=== PATIENT | female | born 1970 | race Two or more races ===

== ENCOUNTER 2019-06-27 09:25 | Inpatient (IN) | payer BC ==
[~2019-06-27] VITALS: Ht 165.1 cm; Wt 72.6 kg
[2019-06-27] MEDS ORDERED: ACETAMINOPHEN 500 MG TABLET PO ONE (10:30)
[2019-06-27] MEDS ORDERED: PIPERACILLIN/TAZOBACTAM 4.5 GM in IV NORMAL SALINE 100ML 100 ML IV ONE (10:30)
[2019-06-27] MEDS ORDERED: MORPHINE SULFATE 4 MG/ML VIAL. IV/SQ PRN (10:30)
[2019-06-27 10:40] LABS: BILIRUBIN,URINE SMALL (NEG); CLARITY,URINE CLEAR; COLOR,URINE AMBER; NITRITE,URINE NEGATIVE (NEG); PROTEIN,URINE 100 mg/dL (NEG-TRACE)
[2019-06-27] MEDS: NORMAL SALINE IV SCH ×2 (10:50→11:22)
[2019-06-27 10:52] LABS: BASO % 0 % (0-3); EOS % 0 % (0-3); HEMATOCRIT 37.2 % (36.0-47.0); HEMOGLOBIN 12.3 g/dL (12.0-15.5); LYMPH # 1.3 x10^3/uL (1.0-4.8); LYMPH % 6 % (24-48); MEAN CORPUSCULAR HEMOGLOBIN 28 pg (25-35); MEAN CORPUSCULAR HGB CONC 33 g/dL (31-37); MEAN CORPUSCULAR VOLUME 83 fL (79-100); MONO # 1.2 x10^3/uL (0.0-1.1); MONO % 6 % (0-9); NEUT % 88 % (31-73); PLATELET COUNT 249 x10^3/uL (140-400); RED BLOOD COUNT 4.48 x10^6/uL (3.50-5.40); WHITE BLOOD COUNT 21.6 x10^3/uL (4.0-11.0)
[2019-06-27 10:58] LABS: BACTERIA,URINE 0 /HPF (0-FEW); RBC,URINE >40 /HPF (0-2); SQUAMOUS EPITHELIAL CELL,UR MOD /LPF; WBC,URINE >40 /HPF (0-4)
[2019-06-27 11:08] LABS: CALCIUM 8.8 mg/dL (8.5-10.1); GFR 58.5; POTASSIUM 3.8 mmol/L (3.5-5.1)
[2019-06-27 11:13] LABS: ALBUMIN 3.5 g/dL (3.4-5.0); ALBUMIN/GLOBULIN RATIO 0.8 (1.0-1.7); TOTAL BILIRUBIN 0.9 mg/dL (0.2-1.0)
[2019-06-27] MEDS ORDERED: IOHEXOL 300 MG/ML 100ML VIAL. IV ONE (11:30)
[2019-06-27] MEDS ORDERED: CONTRAST GIVEN. MC PRN (11:30)
--- NOTE | 2019-06-27 12:14 | RAD ---
PQRS Compliance Statement: One or more of the following individualized dose reduction techniques were utilized for this examination: 1. Automated exposure control 2. Adjustment of the mA and/or kV according to patient size 3. Use of iterative reconstruction technique CT ABD PELV W/ IV CONTRST ONLY Clinical Indication: Right lower quadrant pain, flank pain. Comparison: None. Technique: Helical CT imaging of the abdomen and pelvis is performed after 60 cc of Omnipaque 300 IV contrast. Oral contrast not given. Findings: There is moderate atelectasis in the bilateral basilar lower lobes. Tiny calcified hilar lymph nodes. Cardiac size normal. Cholecystectomy. The liver, spleen, pancreas, abdominal aorta, and adrenal glands are normal. The right kidney is normal. The left kidney is edematous. There is perinephric stranding. Small cyst lower pole of left kidney. There is urothelial hyperenhancement of the renal pelvis and ureter. There is no hydronephrosis. There is no ureteral calculus. Stomach unremarkable. Small fat-containing umbilical hernia. There is no dilated small bowel. Appendix caliber is upper limits of normal, there is no periappendiceal inflammation. There is no dilated small bowel. There is no colon wall thickening. No significant urinary bladder wall thickening. No bladder calculus. Uterus unremarkable. No pelvic free fluid. No acute bone abnormality. IMPRESSION: 1. There is urothelial hyperenhancement of the left renal pelvis and ureter most suggestive of nonspecific pyelitis. 2. The left kidney is edematous and slightly hypoenhancing with perinephric stranding. There are no findings definitive for pyelonephritis but early pyelonephritis is suspected. 3. No obstructive uropathy. 4. Moderate atelectasis in the bilateral lower lobes. Electronically signed by: Mario Levine MD (06/27/2019 12:12 PM) [id number]
[2019-06-27 13:17] LABS: % BANDS 1 % (0-9); % LYMPHS 6 % (24-48); % MONOS 4 % (0-10); % SEGS 89 % (35-66)
[2019-06-27 13:18] LABS: PLT ESTIMATE ADEQUATE (ADEQUATE)
--- NOTE | 2019-06-27 13:57 | PDOC1 ---
History and Physical Date of Admission Date of Admission DATE: 06/27/19 TIME: 13:56 Identification/Chief Complaint Chief Complaint Left flank pain Source Source: Patient History of Present Illness History of Present Illness Ms Bellamy is a 49yo [place] islander-speaking F w/ PMHx migraine, ?lupus who presents to ED c/o right flank pain radiating to the right lower quadrant as well as migraine headache that began 4 days ago. Patient denies any nausea, vomiting, photosensitivity, denies this being the worst headache in her life. Denies any exacerbating or relieving factors to her symptoms. Patient states she was seen yesterday at the PCPs office and was started on Bactrim for UTI. She states she has taken 2 doses with no improvement. CT shows left renal enhancement consistent with possible early pyelonephritis. She c/o RLQ pain, has no left flank pain on examination, only has OWUSU on further ROS. Had WBC 21.6, procalcitonin 6.61, Alkaline phosphatase 145, ALT 68 and had fever 101.6F and HR 122 bpm. Denies recent sick contacts, no change in bowel habits or recent travel. Given empiric zosyn and IVF per sepsis protocol in ED. She has not had a menstrual period in over a year. Urine test was negative. 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 [place] Past Medical History Cardiovascular: No pertinent hx Pulmonary: No pertinent hx CENTRAL NERVOUS SYSTEM: Migraine GI: No pertinent hx Heme/Onc: No pertinent hx Hepatobiliary: No pertinent hx Psych: No pertinent hx Infectious disease: No pertinent hx ENT: No pertinent hx Renal/: No pertinent hx Endocrine: No pertinent hx Dermatology: No pertinent hx Past Surgical History Past Surgical History: Cholecystectomy Family History Family History: Diabetes, High Cholestrol Social History Smoke: No ALCOHOL: none Drugs: None Current Medications Current Medications Current Medications Sodium Chloride 8,070 ml @ 8,070 mls/hr Q1H IV Last administered on 06/27/19at 11:22; Start 06/27/19 at 10:18 Piperacillin Sod/ Tazobactam Sod 4.5 gm/Sodium Chloride 100 ml @ 200 mls/hr 1X ONCE IV Last administered on 06/27/19at 11:21; Start 06/27/19 at 10:30; Stop 06/27/19 at 10:59; Status DC Morphine Sulfate (Morphine Sulfate) 4 mg PRN Q15MIN PRN IV/SQ PAIN GREATER THAN 3/10 Last administered on 06/27/19at 11:21; Start 06/27/19 at 10:30; Stop 06/28/19 at 10:29 Acetaminophen (Tylenol) 1,000 mg 1X ONCE PO Last administered on 06/27/19at 11:21; Start 06/27/19 at 10:30; Stop 06/27/19 at 10:50; Status DC Iohexol (Omnipaque 300 Mg/ml) 75 ml 1X ONCE IV Last administered on 06/27/19at 11:35; Start 06/27/19 at 11:30; Stop 06/27/19 at 11:31; Status DC Info (CONTRAST GIVEN -- Rx MONITORING) 1 each PRN DAILY PRN MC SEE COMMENTS; Start 06/27/19 at 11:30; Stop 06/29/19 at 11:29 Allergies Allergies: Coded Allergies: No Known Drug Allergies (Unverified , 06/27/19) ROS General: YES: Chills, Night Sweats, Fatigue, Malaise, Appetite; No: Other PSYCHOLOGICAL ROS: No: Anxiety, Behavioral Disorder, Concentration difficultie, Decreased libido, Depression, Disorientation, Hallucinations, Hostility, Irritablity, Memory difficulties, Mood Swings, Obsessive thoughts, Physical abuse, Sexual abuse, Sleep disturbances, Suicidal ideation, Other Eyes: Yes Blurry vision, Yes Excessive tearing, Yes Photophobia; No Decreased vision, No Double vision, No Dry eyes, No Eye Pain, No Itchy Eyes, No Loss of vision, No Scotomata, No Uses contacts, No Uses glasses, No Other HEENT: YES: Heacaches; No: Visual Changes, Hearing change, Nasal congestion, Nasal discharge, Oral lesions, Sinus pain, Sore Throat, Epistaxis, Sneezing, Snoring, Tinnitus, Vertigo, Vocal changes, Other ALLERGY AND IMMUNOLOGY: No: Hives, Insect Bite Sensitivity, Itchy/Watery Eyes, Nasal Congestion, Post Nasal Drip, Seasonal Allergies, Other Hematological and Lymphatic: No: Bleeding Problems, Blood Clots, Blood Transfusions, Brusing, Night Sweats, Pallor, Swollen Lymph Nodes, Other ENDOCRINE: No: Breast Changes, Galactorrhea, Hair Pattern Changes, Hot Flashes, Malaise/lethargy, Mood Swings, Palpitations, Polydipsia/polyuria, Skin Changes, Temperature Intolerance, Unexpected Weight Changes, Other Breast: No New/Changing Breast Lumps, No Nipple changes, No Nipple discharge, No Other Respiratory: No: Cough, Hemoptysis, Orthopnea, Pleuritic Pain, Shortness of breath, SOB with excertion, Sputum Changes, Stridor, Tachypnea, Wheezing, Other Cardiovascular: No Chest Pain, No Palpitations, No Orthopnea, No Paroxysmal Noc. Dyspnea, No Edema, No Lt Headedness, No Other Gastrointestinal: Yes Nausea, Yes Abdominal Pain; No Vomiting, No Diarrhea, No Constipation, No Melena, No Hematochezia, No Other Genitourinary: YES Dysuria, YES Frequency, YES Hematuria, YES Urgency, YES Pain , YES Flank Pain; No Incontinence, No Retention, No Discharge, No Other, No , No , No , No , No , No , No Musculoskeletal: No Gait Disturbance, No Joint Pain, No Joint Stiffness, No Joint Swelling, No Muscle Pain, No Muscular Weakness, No Pain In:, No Swelling In:, No Other Neurological: No Behavorial Changes, No Bowel/Bladder ControlChng, No Con fusion, No Dizziness, No Gait Disturbance, No Headaches, No Impaired Coord/balance, No Memory Loss, No Numbness/Tingling, No Seizures, No Speech Problems, No Tremors, No Visual Changes, No Weakness, No Other Skin: No Dry Skin, No Eczema, No Hair Changes, No Lumps, No Mole Changes, No Mottling, No Nail Changes, No Pruritus, No Rash, No Skin Lesion Changes, No O ther, No Acne Physical Exam General: Alert, Oriented X3, Cooperative, No acute distress HEENT: Atraumatic, PERRLA, EOMI, Mucous membr. moist/pink Lungs: Clear to auscultation, Normal air movement Heart: S1S2, RRR, no gallops, no murmurs Abdomen: Normal bowel sounds, No hepatosplenomegaly, No masses, Other (RLQ tender) Rectal Exam: not examined Extremities: No clubbing, No cyanosis, No edema, Normal pulses, No tenderness/swelling Skin: No rashes, No breakdown, No significant lesion Neuro: Normal gait, Normal speech, Strength at 5/5 X4 ext, Normal tone, Sensation intact, Cranial nerves 3-12 NL, Reflexes 2+ Psych/Mental Status: Mental status NL, Mood NL Vitals Vitals Vital Signs Date Time Temp Pulse Resp B/P (MAP) Pulse Ox O2 Delivery O2 Flow Rate FiO2 06/27/19 11:21 30 100 Room Air 06/27/19 10:48 98.3 116 133/60 (84) 98.3 Labs Labs Laboratory Tests Test 06/27/19 09:48 06/27/19 10:18 06/27/19 10:35 Urine Collection Type Unknown Urine Color Sadaf Urine Clarity Clear Urine pH 8.0 Urine Specific [employer] 1.015 Urine Protein 100 mg/dL (NEG-TRACE) Urine Glucose (UA) Negative mg/dL (NEG) Urine Ketones (Stick) 15 mg/dL (NEG) Urine Blood Large (NEG) Urine Nitrite Negative (NEG) Urine Bilirubin Small (NEG) Urine Urobilinogen Dipstick 1.0 mg/dL (0.2 mg/dL) Urine Leukocyte Esterase Moderate (NEG) Urine RBC >40 /HPF (0-2) Urine WBC >40 /HPF (0-4) Urine Squamous Epithelial Cells Mod /LPF Urine Bacteria 0 /HPF (0-FEW) Bedside Urine HCG, Qualitative Hcg negative (Negative) White Blood Count 21.6 x10^3/uL (4.0-11.0) Red Blood Count 4.48 x10^6/uL (3.50-5.40) Hemoglobin 12.3 g/dL (12.0-15.5) Hematocrit 37.2 % (36.0-47.0) Mean Corpuscular Volume 83 fL (79-100) Mean Corpuscular Hemoglobin 28 pg (25-35) Mean Corpuscular Hemoglobin Concent 33 g/dL (31-37) Red Cell Distribution Width 14.0 % (11.5-14.5) Platelet Count 249 x10^3/uL (140-400) Neutrophils (%) (Auto) 88 % (31-73) Lymphocytes (%) (Auto) 6 % (24-48) Monocytes (%) (Auto) 6 % (0-9) Eosinophils (%) (Auto) 0 % (0-3) Basophils (%) (Auto) 0 % (0-3) Neutrophils # (Auto) 19.0 x10^3/uL (1.8-7.7) Lymphocytes # (Auto) 1.3 x10^3/uL (1.0-4.8) Monocytes # (Auto) 1.2 x10^3/uL (0.0-1.1) Eosinophils # (Auto) 0.0 x10^3/uL (0.0-0.7) Basophils # (Auto) 0.0 x10^3/uL (0.0-0.2) Segmented Neutrophils % 89 % (35-66) Band Neutrophils % 1 % (0-9) Lymphocytes % 6 % (24-48) Monocytes % 4 % (0-10) Platelet Estimate Adequate (ADEQUATE) Sodium Level 141 mmol/L (136-145) Potassium Level 3.8 mmol/L (3.5-5.1) Chloride Level 103 mmol/L (98-107) Carbon Dioxide Level 27 mmol/L (21-32) Anion Gap 11 (6-14) Blood Urea Nitrogen 9 mg/dL (7-20) Creatinine 1.0 mg/dL (0.6-1.0) Estimated GFR (Cockcroft-Gault) 58.5 BUN/Creatinine Ratio 9 (6-20) Glucose Level 123 mg/dL (70-99) Lactic Acid Level 1.5 mmol/L (0.4-2.0) Calcium Level 8.8 mg/dL (8.5-10.1) Total Bilirubin 0.9 mg/dL (0.2-1.0) Aspartate Amino Transf (AST/SGOT) 32 U/L (15-37) Alanine Aminotransferase (ALT/SGPT) 68 U/L (14-59) Alkaline Phosphatase 145 U/L (46-116) Total Protein 8.0 g/dL (6.4-8.2) Albumin 3.5 g/dL (3.4-5.0) Albumin/Globulin Ratio 0.8 (1.0-1.7) Lipase 61 U/L (73-393) Procalcitonin 6.61 ng/mL (0.00-0.10) Laboratory Tests Test 06/27/19 09:48 06/27/19 10:18 06/27/19 10:35 Urine Collection Type Unknown Urine Color Sadaf Urine Clarity Clear Urine pH 8.0 Urine Specific [employer] 1.015 Urine Protein 100 mg/dL (NEG-TRACE) Urine Glucose (UA) Negative mg/dL (NEG) Urine Ketones (Stick) 15 mg/dL (NEG) Urine Blood Large (NEG) Urine Nitrite Negative (NEG) Urine Bilirubin Small (NEG) Urine Urobilinogen Dipstick 1.0 mg/dL (0.2 mg/dL) Urine Leukocyte Esterase Moderate (NEG) Urine RBC >40 /HPF (0-2) Urine WBC >40 /HPF (0-4) Urine Squamous Epithelial Cells Mod /LPF Urine Bacteria 0 /HPF (0-FEW) Bedside Urine HCG, Qualitative Hcg negative (Negative) White Blood Count 21.6 x10^3/uL (4.0-11.0) Red Blood Count 4.48 x10^6/uL (3.50-5.40) Hemoglobin 12.3 g/dL (12.0-15.5) Hematocrit 37.2 % (36.0-47.0) Mean Corpuscular Volume 83 fL (79-100) Mean Corpuscular Hemoglobin 28 pg (25-35) Mean Corpuscular Hemoglobin Concent 33 g/dL (31-37) Red Cell Distribution Width 14.0 % (11.5-14.5) Platelet Count 249 x10^3/uL (140-400) Neutrophils (%) (Auto) 88 % (31-73) Lymphocytes (%) (Auto) 6 % (24-48) Monocytes (%) (Auto) 6 % (0-9) Eosinophils (%) (Auto) 0 % (0-3) Basophils (%) (Auto) 0 % (0-3) Neutrophils # (Auto) 19.0 x10^3/uL (1.8-7.7) Lymphocytes # (Auto) 1.3 x10^3/uL (1.0-4.8) Monocytes # (Auto) 1.2 x10^3/uL (0.0-1.1) Eosinophils # (Auto) 0.0 x10^3/uL (0.0-0.7) Basophils # (Auto) 0.0 x10^3/uL (0.0-0.2) Segmented Neutrophils % 89 % (35-66) Band Neutrophils % 1 % (0-9) Lymphocytes % 6 % (24-48) Monocytes % 4 % (0-10) Platelet Estimate Adequate (ADEQUATE) Sodium Level 141 mmol/L (136-145) Potassium Level 3.8 mmol/L (3.5-5.1) Chloride Level 103 mmol/L (98-107) Carbon Dioxide Level 27 mmol/L (21-32) Anion Gap 11 (6-14) Blood Urea Nitrogen 9 mg/dL (7-20) Creatinine 1.0 mg/dL (0.6-1.0) Estimated GFR (Cockcroft-Gault) 58.5 BUN/Creatinine Ratio 9 (6-20) Glucose Level 123 mg/dL (70-99) Lactic Acid Level 1.5 mmol/L (0.4-2.0) Calcium Level 8.8 mg/dL (8.5-10.1) Total Bilirubin 0.9 mg/dL (0.2-1.0) Aspartate Amino Transf (AST/SGOT) 32 U/L (15-37) Alanine Aminotransferase (ALT/SGPT) 68 U/L (14-59) Alkaline Phosphatase 145 U/L (46-116) Total Protein 8.0 g/dL (6.4-8.2) Albumin 3.5 g/dL (3.4-5.0) Albumin/Globulin Ratio 0.8 (1.0-1.7) Lipase 61 U/L (73-393) Procalcitonin 6.61 ng/mL (0.00-0.10) Images Images CT abdomen/pelvis - 1. There is urothelial hyperenhancement of the left renal pelvis and ureter most suggestive of nonspecific pyelitis. 2. The left kidney is edematous and slightly hypoenhancing with perinephric stranding. There are no findings definitive for pyelonephritis but early pyelonephritis is suspected. 3. No obstructive uropathy. 4. Moderate atelectasis in the bilateral lower lobes. VTE Prophylaxis Ordered VTE Prophylaxis Devices: Yes VTE Pharmacological Prophylaxi: No Assessment/Plan Assessment/Plan A/P: Acute abdominal pain - with her dysuria this does seem like pyelonephritis. Interestingly her pain is not on her left side or flank, but in RLQ. Her appendix is large, but doesn't appear inflamed on CT. Intractable headache - history of migraine, will give toradol prn. She is not on any prophylaxis ?lupus - she is uncertain or we are mistranslating. Given her hematuria and hea dache and incongruous CT and abdominal findings I will order RADHA and dsDNA now. Severe sepsis - blood cultures x2, urine culture. Empiric antibiotics for seems to be urosepsis, IVF. tylenol and toradol for fevers Transaminitis - likely 2/2 hypotension, will monitor FEN -General diet. NSS 175cc/hr PPX - SCDs FULL CODE Dispo -inpatient for sepsis related to pyelonephritis MARTINA RAUSCH MD Jun 27, 2019 13:57
[2019-06-27] MEDS ORDERED: CIPROFLOXACIN 200MG PREMIX 100 ML IV ONE (14:00)
--- NOTE | 2019-06-27 16:05 | PHYS DOC ---
Past Medical History Past Medical History: Migraines, Other Additional Past Medical Histor: POSSIBLE LUPUS Past Surgical History: Cholecystectomy Alcohol Use: Rarely Drug Use: None Adult General Chief Complaint Chief Complaint: HEADACHE HPI HPI Patient is a 49 year old [place]-speaking female with history of migraine headaches who presents to the ED today complaining of a chilling 8 out of 10 r ight flank pain radiating to the right lower quadrant as well as migraine headache that began 4 days ago. Patient denies any nausea, vomiting, photosensitivity, denies this being the worst headache in her life. Denies any exacerbating or relieving factors to her symptoms. Patient states she was seen yesterday at the PCPs office and was started on Bactrim for UTI. She states she has taken 2 doses with no improvement. 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 Denies dysuria or hematuria [] Musculoskeletal: Denies back pain or joint pain [] Integument: Denies rash or skin lesions [] Neurologic: Reports headache, denies focal weakness or sensory changes [] All other systems were reviewed and found to be within normal limits, except as documented in this note. Current Medications Current Medications Current Medications Medications (Trade) Dose Ordered Sig/[facility] Start Time Stop Time Status Last Admin Dose Admin Acetaminophen (Tylenol) 1,000 mg 1X ONCE 06/27/19 10:30 06/27/19 10:50 DC 06/27/19 11:21 1,000 MG Ciprofloxacin/ Dextrose 100 ml @ 100 mls/hr 1X ONCE 06/27/19 14:00 06/27/19 14:59 DC 06/27/19 14:18 100 MLS/HR Info (CONTRAST GIVEN -- Rx MONITORING) 1 each PRN DAILY PRN 06/27/19 11:30 06/29/19 11:29 Iohexol (Omnipaque 300 Mg/ml) 75 ml 1X ONCE 06/27/19 11:30 06/27/19 11:31 DC 06/27/19 11:35 75 ML Morphine Sulfate (Morphine Sulfate) 4 mg PRN Q15MIN PRN 06/27/19 10:30 06/28/19 10:29 06/27/19 11:21 4 MG Piperacillin Sod/ Tazobactam Sod 4.5 gm/Sodium Chloride 100 ml @ 200 mls/hr 1X ONCE 06/27/19 10:30 06/27/19 10:59 DC 06/27/19 11:21 200 MLS/HR Sodium Chloride 8,070 ml @ 8,070 mls/hr Q1H 06/27/19 10:18 06/27/19 11:22 8,070 MLS/HR Allergies Allergies Allergies Coded Allergies Type Severity Reaction Last Updated Verified No Known Drug Allergies 06/27/19 No Physical Exam Physical Exam Constitutional: Well developed, well nourished, no acute distress, non-toxic appearance. [] HENT: Normocephalic, atraumatic, bilateral external ears normal, oropharynx moist, no oral exudates, nose normal. [] Eyes: PERRLA, EOMI, conjunctiva normal, no discharge. [] Neck: Normal range of motion, no tenderness, supple, no stridor. [] Cardiovascular:Heart rate regular rhythm, no murmur [] Lungs & Thorax: Bilateral breath sounds clear to auscultation [] Abdomen: Bowel sounds normal, soft, no tenderness, no masses, no pulsatile masses. [] Skin: Warm, dry, no erythema, no rash. [] Back: No tenderness, moderate bilateral CVA tenderness. [] Extremities: No tenderness, no cyanosis, no clubbing, ROM intact, no edema. [] Neurologic: Alert and oriented X 3, normal motor function, normal sensory function, no focal deficits noted. Cranial nerves II through XII intact Psychologic: Affect normal, judgement normal, mood normal. [] Current Patient Data Vital Signs Vital Signs Date Time Temp Pulse Resp B/P (MAP) Pulse Ox O2 Delivery O2 Flow Rate FiO2 06/27/19 13:54 102 24 85/51 (62) 97 Room Air 06/27/19 11:36 101.6 101.6 Lab Values Laboratory Tests Test 06/27/19 09:48 06/27/19 10:18 06/27/19 10:35 06/27/19 14:00 Urine Collection Type Unknown Urine Color Sadaf Urine Clarity Clear Urine pH 8.0 Urine Specific [place] 1.015 Urine Protein 100 mg/dL (NEG-TRACE) Urine Glucose (UA) Negative mg/dL (NEG) Urine Ketones (Stick) 15 mg/dL (NEG) Urine Blood Large (NEG) Urine Nitrite Negative (NEG) Urine Bilirubin Small (NEG) Urine Urobilinogen Dipstick 1.0 mg/dL (0.2 mg/dL) Urine Leukocyte Esterase Moderate (NEG) Urine RBC >40 /HPF (0-2) Urine WBC >40 /HPF (0-4) Urine Squamous Epithelial Cells Mod /LPF Urine Bacteria 0 /HPF (0-FEW) POC Urine HCG, Qualitative Hcg negative (Negative) White Blood Count 21.6 x10^3/uL (4.0-11.0) H Red Blood Count 4.48 x10^6/uL (3.50-5.40) Hemoglobin 12.3 g/dL (12.0-15.5) Hematocrit 37.2 % (36.0-47.0) Mean Corpuscular Volume 83 fL (79-100) Mean Corpuscular Hemoglobin 28 pg (25-35) Mean Corpuscular Hemoglobin Concent 33 g/dL (31-37) Red Cell Distribution Width 14.0 % (11.5-14.5) Platelet Count 249 x10^3/uL (140-400) Neutrophils (%) (Auto) 88 % (31-73) H Lymphocytes (%) (Auto) 6 % (24-48) L Monocytes (%) (Auto) 6 % (0-9) Eosinophils (%) (Auto) 0 % (0-3) Basophils (%) (Auto) 0 % (0-3) Neutrophils # (Auto) 19.0 x10^3/uL (1.8-7.7) H Lymphocytes # (Auto) 1.3 x10^3/uL (1.0-4.8) Monocytes # (Auto) 1.2 x10^3/uL (0.0-1.1) H Eosinophils # (Auto) 0.0 x10^3/uL (0.0-0.7) Basophils # (Auto) 0.0 x10^3/uL (0.0-0.2) Segmented Neutrophils % 89 % (35-66) H Band Neutrophils % 1 % (0-9) Lymphocytes % 6 % (24-48) L Monocytes % 4 % (0-10) Platelet Estimate Adequate (ADEQUATE) Sodium Level 141 mmol/L (136-145) Potassium Level 3.8 mmol/L (3.5-5.1) Chloride Level 103 mmol/L (98-107) Carbon Dioxide Level 27 mmol/L (21-32) Anion Gap 11 (6-14) Blood Urea Nitrogen 9 mg/dL (7-20) Creatinine 1.0 mg/dL (0.6-1.0) Estimated GFR (Cockcroft-Gault) 58.5 BUN/Creatinine Ratio 9 (6-20) Glucose Level 123 mg/dL (70-99) H Lactic Acid Level 1.5 mmol/L (0.4-2.0) 0.6 mmol/L (0.4-2.0) Calcium Level 8.8 mg/dL (8.5-10.1) Total Bilirubin 0.9 mg/dL (0.2-1.0) Aspartate Amino Transferase (AST) 32 U/L (15-37) Alanine Aminotransferase (ALT) 68 U/L (14-59) H Alkaline Phosphatase 145 U/L (46-116) H Total Protein 8.0 g/dL (6.4-8.2) Albumin 3.5 g/dL (3.4-5.0) Albumin/Globulin Ratio 0.8 (1.0-1.7) L Lipase 61 U/L (73-393) L Procalcitonin 6.61 ng/mL (0.00-0.10) H Laboratory Tests 06/27/19 10:35 Laboratory Tests 06/27/19 10:35 EKG EKG [] Radiology/Procedures Radiology/Procedures []PROCEDURE: CT ABD PELV W/ IV CONTRST ONLY PQRS Compliance Statement: One or more of the following individualized dose reduction techniques were utilized for this examination: 1. Automated exposure control 2. Adjustment of the mA and/or kV according to patient size 3. Use of iterative reconstruction technique CT ABD PELV W/ IV CONTRST ONLY Clinical Indication: Right lower quadrant pain, flank pain. Comparison: None. Technique: Helical CT imaging of the abdomen and pelvis is performed after 60 cc of Omnipaque 300 IV contrast. Oral contrast not given. Findings: There is moderate atelectasis in the bilateral basilar lower lobes. Tiny calcified hilar lymph nodes. Cardiac size normal. Cholecystectomy. The liver, spleen, pancreas, abdominal aorta, and adrenal glands are normal. The right kidney is normal. The left kidney is edematous. There is perinephric stranding. Small cyst lower pole of left kidney. There is urothelial hyperenhancement of the renal pelvis and ureter. There is no hydronephrosis. There is no ureteral calculus. Stomach unremarkable. Small fat-containing umbilical hernia. There is no dilated small bowel. Appendix caliber is upper limits of normal, there is no periappendiceal inflammation. There is no dilated small bowel. There is no colon wall thickening. No significant urinary bladder wall thickening. No bladder calculus. Uterus unremarkable. No pelvic free fluid. No acute bone abnormality. IMPRESSION: 1. There is urothelial hyperenhancement of the left renal pelvis and ureter most suggestive of nonspecific pyelitis. 2. The left kidney is edematous and slightly hypoenhancing with perinephric stranding. There are no findings definitive for pyelonephritis but early pyelonephritis is suspected. 3. No obstructive uropathy. 4. Moderate atelectasis in the bilateral lower lobes. Electronically signed by: Mario Newman MD (06/27/2019 12:12 PM) [id number] DICTATED and SIGNED BY: MARIO NEWMAN MD DATE: 06/27/19 1212 Course & Med Decision Making Course & Med Decision Making Pertinent Labs and Imaging studies reviewed. (See chart for details) This is a 49-year-old female patient presenting to the ED today complaining of a headache and right flank pain for 4 days. Temperature not to the ED 11.6, heart rate in the 120s, blood pressures in the 90s over 60s. Patient was started on the sepsis protocol. Was given Zosyn on arrival to the ED. Given levaquin Urine analysis is noted for UTI CBC with a WBC of 21.6 with a left shift lactic 1.[address] of the abdomen and pelvic was noted for pyelonephritis Consulted with Dr. Charles who accepted patient for admission. We will continue with fluid resuscitation. Dragon Disclaimer Dragon Disclaimer This electronic medical record was generated, in whole or in part, using a voice recognition dictation system. Date and Time of Reassessment Date: Jun 27, 2019 Time: 15:30 Fluid Challenge Is the fluid challenge complet: No IBW Target Volume Used: Yes BMI > 30: No Vital Signs Vital Signs: Vital Signs Date Time Temp Pulse Resp B/P (MAP) Pulse Ox O2 Delivery O2 Flow Rate FiO2 06/27/19 13:54 102 24 85/51 (62) 97 Room Air 06/27/19 11:36 101.6 101.6 Temperature Source: Oral Respirations Respiratory Effort: Normal Respiratory Pattern: Normal Cardiovascular Pulse Rhythm: Regular Heart: Nml rate, reg. rhythm Lung Sounds Breath Sounds: Clear Capillary Refil Capillary Refill: Rt Hand > 3 seconds Peripheral Pulse Pulse Location: Monitor Pulse Strength: Normal (2+) Pulse Assessment Method: Monitor Integumentary Skin: Warm Skin Moisture: Dry Skin Color: warm Fingernail Color: WNL Departure Departure Impression: Primary Impression: Pyelonephritis Additional Impressions: Fever Severe sepsis Headache Leukocytosis Disposition: 09 ADMITTED INPATIENT Condition: STABLE Referrals: NO PCP (PCP) Problem Qualifiers Additional Impressions: Fever Fever type: unspecified Qualified Codes: R50.9 - Fever, unspecified Headache Headache type: unspecified Headache chronicity pattern: unspecified pattern Intractability: not intractable Qualified Codes: R51 - Headache Leukocytosis Leukocytosis type: unspecified Qualified Codes: D72.829 - Elevated white blood cell count, unspecified MUTUNGA,DANILO DESIGNER Jun 27, 2019 16:05
[2019-06-27] MEDS ORDERED: ONDANSETRON PF 4 MG/2 ML VIAL. IV PRN (16:15)
[2019-06-27] MEDS ORDERED: IV NORMAL SALINE 1000ML BAG 1,000 ML IV ONE (16:15)
[2019-06-27] MEDS: KETOROLAC 30 MG/ML VIAL. IV PRN (16:56)
[2019-06-27 19:00] VITALS: BP 123/71
[2019-06-27] MEDS: MORPHINE SULFATE 2 MG/ML VIAL. IV PRN (20:24)
--- NOTE | 2019-06-27 20:25 | NUR ---
The patient, SOLITARIO HANSEN, 49 y/o, F admitted by MARTINA RAUSCH MD, was given written information regarding hospital policies, unit procedures and contact persons. patient arrived via ED bed, assisted by ED staff member. Valuables were checked and noted. Aircraft Dispatcher phone used for admission questions and information. Patient denies needs at this time. Patient was given water and new gown at this time. This RN will continue to monitor the patient.
[2019-06-27] MEDS ORDERED: ENOXAPARIN 40 MG/0.4 ML SYRINGE. SQ ONE (21:30)
[2019-06-27] MEDS: POLYETHYLENE GLYCOL 3350 17 GM PACKET. PO SCH (22:45)
[2019-06-27] MEDS: PSYLLIUM HUSK (SUGAR FREE) 1 PKT PACKET PO SCH (22:45)
[2019-06-27] MEDS: PIPERACILLIN/TAZOBACTAM 3.375 GM in IV NORMAL SALINE 50ML 50 ML IV SCH (22:46)
[2019-06-27] MEDS: IV NORMAL SALINE 1000ML BAG 1,000 ML IV SCH (22:51)
[2019-06-27] MEDS: ACETAMINOPHEN 325 MG TABLET. PO PRN (22:53)
[2019-06-27 23:00] VITALS: BP 121/69
[2019-06-28] VITALS (7 sets, daily range): BP systolic 103–127; BP diastolic 65–78
[2019-06-28] MEDS: PIPERACILLIN/TAZOBACTAM 3.375 GM in IV NORMAL SALINE 50ML 50 ML IV SCH ×5 (01:56→23:40)
[2019-06-28] MEDS: KETOROLAC 30 MG/ML VIAL. IV PRN ×3 (01:57→17:03)
[2019-06-28 05:34] LABS: BASO % 0 % (0-3); EOS % 0 % (0-3); HEMATOCRIT 31.8 % (36.0-47.0); HEMOGLOBIN 10.5 g/dL (12.0-15.5); LYMPH # 1.1 x10^3/uL (1.0-4.8); LYMPH % 9 % (24-48); MEAN CORPUSCULAR HEMOGLOBIN 27 pg (25-35); MEAN CORPUSCULAR HGB CONC 33 g/dL (31-37); MEAN CORPUSCULAR VOLUME 83 fL (79-100); MONO # 0.7 x10^3/uL (0.0-1.1); MONO % 6 % (0-9); NEUT # 10.5 x10^3/uL (1.8-7.7); NEUT % 85 % (31-73); PLATELET COUNT 212 x10^3/uL (140-400); RED BLOOD COUNT 3.82 x10^6/uL (3.50-5.40); RED CELL DISTRIBUTION WIDTH 14.3 % (11.5-14.5); WHITE BLOOD COUNT 12.4 x10^3/uL (4.0-11.0)
[2019-06-28 06:01] LABS: ALBUMIN 2.4 g/dL (3.4-5.0); ALBUMIN/GLOBULIN RATIO 0.7 (1.0-1.7); CALCIUM 7.6 mg/dL (8.5-10.1); CREATININE 0.8 mg/dL (0.6-1.0); GFR 75.6; POTASSIUM 3.3 mmol/L (3.5-5.1); TOTAL BILIRUBIN 1.1 mg/dL (0.2-1.0)
[2019-06-28] MEDS: ACETAMINOPHEN 325 MG TABLET. PO PRN ×2 (07:31→17:01)
[2019-06-28] MEDS: MORPHINE SULFATE 2 MG/ML VIAL. IV PRN ×4 (08:06→21:47)
[2019-06-28] MEDS: IV NORMAL SALINE 1000ML BAG 1,000 ML IV SCH ×3 (08:07→17:02)
--- NOTE | 2019-06-28 15:42 | PDOC ---
PROGRESS NOTES Chief Complaint Chief Complaint A/P: Acute abdominal pain - with her dysuria this does seem like pyelonephritis. Interestingly her pain is not on her left side or flank, but in RLQ. Her appendix is large, but doesn't appear inflamed on CT. Intractable headache - history of migraine, will give toradol prn. She is not on any prophylaxis ?lupus - she is uncertain or we are mistranslating. Given her hematuria and headache and incongruous CT and abdominal findings I will order RADHA and dsDNA now. Severe sepsis - blood cultures x2, urine culture. Empiric antibiotics for seems to be urosepsis, IVF. tylenol and toradol for fevers Transaminitis - likely 2/2 hypotension, will monitor, trended down Hypokalemia - will replace IV FEN - General diet. NSS 75cc/hr PPX - SCDs FULL CODE Dispo -inpatient for sepsis related to pyelonephritis History of Present Illness History of Present Illness Ms Bellamy is a 49yo pashto-speaking F w/ PMHx migraine, ?lupus who presents to ED c/o right flank pain radiating to the right lower quadrant as well as migraine headache that began 4 days ago. Patient denies any nausea, vomiting, photosensitivity, denies this being the worst headache in her life. Denies any exacerbating or relieving factors to her symptoms. Patient states she was seen yesterday at the PCPs office and was started on Bactrim for UTI. She states she has taken 2 doses with no improvement. CT shows left renal enhancement consistent with possible early pyelonephritis. She c/o RLQ pain, has no left flank pain on examination, only has OWUSU on further ROS. Had WBC 21.6, procalcitonin 6.61, Alkaline phosphatase 145, ALT 68 and had fever 101.6F and HR 122 bpm. Denies recent sick contacts, no change in bowel habits or recent travel. Given empiric zosyn and IVF per sepsis protocol in ED. She has not had a menstrual period in over a year. Urine test was negative. Patient is [place]-speaking and employment educational coord line is used for [place] Overnight no further fevers. Still c/o headache today, states it is a bit worse, asking for morphine to relieve it. Urinating frequently. Still c/o RLQ pain, no left sided pain. WBC coming down. Vitals Vitals Vital Signs Date Time Temp Pulse Resp B/P (MAP) Pulse Ox O2 Delivery O2 Flow Rate FiO2 06/28/19 14:37 18 Room Air 06/28/19 11:00 98.4 89 103/68 (80) 90 98.4 06/28/19 04:55 Physical Exam General: Alert, Oriented X3, Cooperative, No acute distress Abdomen: Normal bowel sounds, No hepatosplenomegaly, No masses, Other (RLQ tender) Extremities: No clubbing, No cyanosis, No edema, Normal pulses, No tenderness/swelling Skin: No rashes, No breakdown, No significant lesion Labs LABS Laboratory Tests Test 06/28/19 04:45 White Blood Count 12.4 x10^3/uL (4.0-11.0) Red Blood Count 3.82 x10^6/uL (3.50-5.40) Hemoglobin 10.5 g/dL (12.0-15.5) Hematocrit 31.8 % (36.0-47.0) Mean Corpuscular Volume 83 fL (79-100) Mean Corpuscular Hemoglobin 27 pg (25-35) Mean Corpuscular Hemoglobin Concent 33 g/dL (31-37) Red Cell Distribution Width 14.3 % (11.5-14.5) Platelet Count 212 x10^3/uL (140-400) Neutrophils (%) (Auto) 85 % (31-73) Lymphocytes (%) (Auto) 9 % (24-48) Monocytes (%) (Auto) 6 % (0-9) Eosinophils (%) (Auto) 0 % (0-3) Basophils (%) (Auto) 0 % (0-3) Neutrophils # (Auto) 10.5 x10^3/uL (1.8-7.7) Lymphocytes # (Auto) 1.1 x10^3/uL (1.0-4.8) Monocytes # (Auto) 0.7 x10^3/uL (0.0-1.1) Eosinophils # (Auto) 0.0 x10^3/uL (0.0-0.7) Basophils # (Auto) 0.0 x10^3/uL (0.0-0.2) Sodium Level 143 mmol/L (136-145) Potassium Level 3.3 mmol/L (3.5-5.1) Chloride Level 109 mmol/L (98-107) Carbon Dioxide Level 23 mmol/L (21-32) Anion Gap 11 (6-14) Blood Urea Nitrogen 6 mg/dL (7-20) Creatinine 0.8 mg/dL (0.6-1.0) Estimated GFR (Cockcroft-Gault) 75.6 BUN/Creatinine Ratio 8 (6-20) Glucose Level 102 mg/dL (70-99) Calcium Level 7.6 mg/dL (8.5-10.1) Total Bilirubin 1.1 mg/dL (0.2-1.0) Aspartate Amino Transf (AST/SGOT) 36 U/L (15-37) Alanine Aminotransferase (ALT/SGPT) 56 U/L (14-59) Alkaline Phosphatase 145 U/L (46-116) Total Protein 6.0 g/dL (6.4-8.2) Albumin 2.4 g/dL (3.4-5.0) Albumin/Globulin Ratio 0.7 (1.0-1.7) Assessment and Plan Assessmemt and Plan Problems Medical Problems: (1) Fever Status: Acute (2) Headache Status: Acute (3) Leukocytosis Status: Acute (4) Pyelonephritis Status: Acute (5) Severe sepsis Status: Acute Comment Review of Relevant I have reviewed the following items moy (where applicable) has been applied. Labs Laboratory Tests Test 06/27/19 09:48 06/27/19 10:18 06/27/19 10:35 06/27/19 14:00 Urine Collection Type Unknown Urine Color Sadaf Urine Clarity Clear Urine pH 8.0 Urine Specific [place] 1.015 Urine Protein 100 mg/dL (NEG-TRACE) Urine Glucose (UA) Negative mg/dL (NEG) Urine Ketones (Stick) 15 mg/dL (NEG) Urine Blood Large (NEG) Urine Nitrite Negative (NEG) Urine Bilirubin Small (NEG) Urine Urobilinogen Dipstick 1.0 mg/dL (0.2 mg/dL) Urine Leukocyte Esterase Moderate (NEG) Urine RBC >40 /HPF (0-2) Urine WBC >40 /HPF (0-4) Urine Squamous Epithelial Cells Mod /LPF Urine Bacteria 0 /HPF (0-FEW) Bedside Urine HCG, Qualitative Hcg negative (Negative) White Blood Count 21.6 x10^3/uL (4.0-11.0) Red Blood Count 4.48 x10^6/uL (3.50-5.40) Hemoglobin 12.3 g/dL (12.0-15.5) Hematocrit 37.2 % (36.0-47.0) Mean Corpuscular Volume 83 fL (79-100) Mean Corpuscular Hemoglobin 28 pg (25-35) Mean Corpuscular Hemoglobin Concent 33 g/dL (31-37) Red Cell Distribution Width 14.0 % (11.5-14.5) Platelet Count 249 x10^3/uL (140-400) Neutrophils (%) (Auto) 88 % (31-73) Lymphocytes (%) (Auto) 6 % (24-48) Monocytes (%) (Auto) 6 % (0-9) Eosinophils (%) (Auto) 0 % (0-3) Basophils (%) (Auto) 0 % (0-3) Neutrophils # (Auto) 19.0 x10^3/uL (1.8-7.7) Lymphocytes # (Auto) 1.3 x10^3/uL (1.0-4.8) Monocytes # (Auto) 1.2 x10^3/uL (0.0-1.1) Eosinophils # (Auto) 0.0 x10^3/uL (0.0-0.7) Basophils # (Auto) 0.0 x10^3/uL (0.0-0.2) Segmented Neutrophils % 89 % (35-66) Band Neutrophils % 1 % (0-9) Lymphocytes % 6 % (24-48) Monocytes % 4 % (0-10) Platelet Estimate Adequate (ADEQUATE) Sodium Level 141 mmol/L (136-145) Potassium Level 3.8 mmol/L (3.5-5.1) Chloride Level 103 mmol/L (98-107) Carbon Dioxide Level 27 mmol/L (21-32) Anion Gap 11 (6-14) Blood Urea Nitrogen 9 mg/dL (7-20) Creatinine 1.0 mg/dL (0.6-1.0) Estimated GFR (Cockcroft-Gault) 58.5 BUN/Creatinine Ratio 9 (6-20) Glucose Level 123 mg/dL (70-99) Lactic Acid Level 1.5 mmol/L (0.4-2.0) 0.6 mmol/L (0.4-2.0) Calcium Level 8.8 mg/dL (8.5-10.1) Total Bilirubin 0.9 mg/dL (0.2-1.0) Aspartate Amino Transf (AST/SGOT) 32 U/L (15-37) Alanine Aminotransferase (ALT/SGPT) 68 U/L (14-59) Alkaline Phosphatase 145 U/L (46-116) Total Protein 8.0 g/dL (6.4-8.2) Albumin 3.5 g/dL (3.4-5.0) Albumin/Globulin Ratio 0.8 (1.0-1.7) Lipase 61 U/L (73-393) Procalcitonin 6.61 ng/mL (0.00-0.10) Test 06/28/19 04:45 White Blood Count 12.4 x10^3/uL (4.0-11.0) Red Blood Count 3.82 x10^6/uL (3.50-5.40) Hemoglobin 10.5 g/dL (12.0-15.5) Hematocrit 31.8 % (36.0-47.0) Mean Corpuscular Volume 83 fL (79-100) Mean Corpuscular Hemoglobin 27 pg (25-35) Mean Corpuscular Hemoglobin Concent 33 g/dL (31-37) Red Cell Distribution Width 14.3 % (11.5-14.5) Platelet Count 212 x10^3/uL (140-400) Neutrophils (%) (Auto) 85 % (31-73) Lymphocytes (%) (Auto) 9 % (24-48) Monocytes (%) (Auto) 6 % (0-9) Eosinophils (%) (Auto) 0 % (0-3) Basophils (%) (Auto) 0 % (0-3) Neutrophils # (Auto) 10.5 x10^3/uL (1.8-7.7) Lymphocytes # (Auto) 1.1 x10^3/uL (1.0-4.8) Monocytes # (Auto) 0.7 x10^3/uL (0.0-1.1) Eosinophils # (Auto) 0.0 x10^3/uL (0.0-0.7) Basophils # (Auto) 0.0 x10^3/uL (0.0-0.2) Sodium Level 143 mmol/L (136-145) Potassium Level 3.3 mmol/L (3.5-5.1) Chloride Level 109 mmol/L (98-107) Carbon Dioxide Level 23 mmol/L (21-32) Anion Gap 11 (6-14) Blood Urea Nitrogen 6 mg/dL (7-20) Creatinine 0.8 mg/dL (0.6-1.0) Estimated GFR (Cockcroft-Gault) 75.6 BUN/Creatinine Ratio 8 (6-20) Glucose Level 102 mg/dL (70-99) Calcium Level 7.6 mg/dL (8.5-10.1) Total Bilirubin 1.1 mg/dL (0.2-1.0) Aspartate Amino Transf (AST/SGOT) 36 U/L (15-37) Alanine Aminotransferase (ALT/SGPT) 56 U/L (14-59) Alkaline Phosphatase 145 U/L (46-116) Total Protein 6.0 g/dL (6.4-8.2) Albumin 2.4 g/dL (3.4-5.0) Albumin/Globulin Ratio 0.7 (1.0-1.7) Laboratory Tests Test 06/28/19 04:45 White Blood Count 12.4 x10^3/uL (4.0-11.0) Red Blood Count 3.82 x10^6/uL (3.50-5.40) Hemoglobin 10.5 g/dL (12.0-15.5) Hematocrit 31.8 % (36.0-47.0) Mean Corpuscular Volume 83 fL (79-100) Mean Corpuscular Hemoglobin 27 pg (25-35) Mean Corpuscular Hemoglobin Concent 33 g/dL (31-37) Red Cell Distribution Width 14.3 % (11.5-14.5) Platelet Count 212 x10^3/uL (140-400) Neutrophils (%) (Auto) 85 % (31-73) Lymphocytes (%) (Auto) 9 % (24-48) Monocytes (%) (Auto) 6 % (0-9) Eosinophils (%) (Auto) 0 % (0-3) Basophils (%) (Auto) 0 % (0-3) Neutrophils # (Auto) 10.5 x10^3/uL (1.8-7.7) Lymphocytes # (Auto) 1.1 x10^3/uL (1.0-4.8) Monocytes # (Auto) 0.7 x10^3/uL (0.0-1.1) Eosinophils # (Auto) 0.0 x10^3/uL (0.0-0.7) Basophils # (Auto) 0.0 x10^3/uL (0.0-0.2) Sodium Level 143 mmol/L (136-145) Potassium Level 3.3 mmol/L (3.5-5.1) Chloride Level 109 mmol/L (98-107) Carbon Dioxide Level 23 mmol/L (21-32) Anion Gap 11 (6-14) Blood Urea Nitrogen 6 mg/dL (7-20) Creatinine 0.8 mg/dL (0.6-1.0) Estimated GFR (Cockcroft-Gault) 75.6 BUN/Creatinine Ratio 8 (6-20) Glucose Level 102 mg/dL (70-99) Calcium Level 7.6 mg/dL (8.5-10.1) Total Bilirubin 1.1 mg/dL (0.2-1.0) Aspartate Amino Transf (AST/SGOT) 36 U/L (15-37) Alanine Aminotransferase (ALT/SGPT) 56 U/L (14-59) Alkaline Phosphatase 145 U/L (46-116) Total Protein 6.0 g/dL (6.4-8.2) Albumin 2.4 g/dL (3.4-5.0) Albumin/Globulin Ratio 0.7 (1.0-1.7) Microbiology 06/27/19 Blood Culture - Preliminary, Resulted NO GROWTH AFTER 1 DAY Medications Current Medications Sodium Chloride 8,070 ml @ 8,070 mls/hr Q1H IV Last administered on 06/27/19at 11:22; Start 06/27/19 at 10:18; Stop 06/27/19 at 21:31; Status DC Piperacillin Sod/ Tazobactam Sod 4.5 gm/Sodium Chloride 100 ml @ 200 mls/hr 1X ONCE IV Last administered on 06/27/19at 11:21; Start 06/27/19 at 10:30; Stop 06/27/19 at 10:59; Status DC Morphine Sulfate (Morphine Sulfate) 4 mg PRN Q15MIN PRN IV/SQ PAIN GREATER THAN 3/10 Last administered on 06/27/19 11:21; Start 06/27/19 at 10:30; Stop 06/28/19 at 10:29; Status DC Acetaminophen (Tylenol) 1,000 mg 1X ONCE PO Last administered on 06/27/19 11:21; Start 06/27/19 at 10:30; Stop 06/27/19 at 10:50; Status DC Iohexol (Omnipaque 300 Mg/ml) 75 ml 1X ONCE IV Last administered on 06/27/19 11:35; Start 06/27/19 at 11:30; Stop 06/27/19 at 11:31; Status DC Info (CONTRAST GIVEN -- Rx MONITORING) 1 each PRN DAILY PRN MC SEE COMMENTS Last administered on 06/27/19 17:03; Start 06/27/19 at 11:30; Stop 06/29/19 at 11:29 Ciprofloxacin/ Dextrose 100 ml @ 100 mls/hr 1X ONCE IV Last administered on 06/27/19 14:18; Start 06/27/19 at 14:00; Stop 06/27/19 at 14:59; Status DC Ondansetron HCl (Zofran) 4 mg PRN Q8HRS PRN IV NAUSEA/VOMITING Last administered on 06/28/19 09:07; Start 06/27/19 at 16:15; Stop 06/28/19 at 16:14 Morphine Sulfate (Morphine Sulfate) 2 mg PRN Q2HR PRN IV PAIN Last administered on 06/28/19 13:18; Start 06/27/19 at 16:15; Stop 06/28/19 at 16:14 Acetaminophen (Tylenol) 650 mg PRN Q4HRS PRN PO FEVER Last administered on 06/28/19 09:07; Start 06/27/19 at 16:15; Stop 06/28/19 at 16:14 Sodium Chloride 1,000 ml @ 125 mls/hr 1X ONCE IV Last administered on 06/27/19 16:56; Start 06/27/19 at 16:15; Stop 06/28/19 at 00:14; Status DC Ketorolac Tromethamine (Toradol 30mg Vial) 30 mg PRN Q6HRS PRN IV PAIN Last administered on 06/28/19 09:07; Start 06/27/19 at 16:30; Stop 07/02/19 at 16:29 Levofloxacin/ Dextrose 100 ml @ 100 mls/hr 1X ONCE IV ; Start 06/27/19 at 18:15; Stop 06/27/19 at 19:14; Status UNV Enoxaparin Sodium (Lovenox 40mg Syringe) 40 mg 1X ONCE SQ Last administered on 06/27/19at 21:47; Start 06/27/19 at 21:30; Stop 06/27/19 at 21:32; Status DC Sodium Chloride 1,000 ml @ 75 mls/hr [id number] IV Last administered on 06/28/19 08:08; Start 06/27/19 at 21:30 Piperacillin Sod/ Tazobactam Sod 3.375 gm/Sodium Chloride 50 ml @ 100 mls/hr Q6HRS IV Last administered on 06/28/19at 11:31; Start 06/27/19 at 22:30 Psyllium Hydrophilic Mucilloid (Metamucil Fiber Packet) 1 pkt QHS PO Last administered on 06/27/19 22:53; Start 06/27/19 at 22:30 Polyethylene Glycol (miraLAX PACKET) 17 gm QHS PO Last administered on 06/27/19 22:53; Start 06/27/19 at 22:30 Vitals/I & O Vital Sign - Last 24 Hours 06/27/19 06/27/19 06/27/19 06/27/19 15:54 16:24 16:54 17:24 Pulse 92 98 106 98 Resp 24 27 B/P (MAP) 95/59 (71) 97/60 (72) 101/62 (75) 90/57 (68) Pulse Ox 97 97 97 98 O2 Delivery Room Air Room Air Room Air Room Air 06/27/19 06/27/19 06/27/19 06/27/19 17:54 18:24 18:54 19:00 Temp 98.2 98.2 Pulse 98 92 94 103 Resp 24 24 17 B/P (MAP) 94/58 (70) 92/50 (64) 95/60 (72) 123/71 (88) Pulse Ox 100 99 97 92 O2 Delivery Room Air Room Air Room Air 906/27/19 06/27/19 06/28/19 19:24 20:38 23:00 03:00 Temp 99.5 98.3 99.5 98.3 Pulse 96 109 91 Resp 23 17 18 B/P (MAP) 90/52 (65) 121/69 (86) 109/69 (82) Pulse Ox 97 95 95 O2 Delivery Room Air Room Air Room Air O2 Flow Rate 1.0 06/28/19 06/28/19 06/28/19 06/28/19 04:55 07:00 08:06 09:31 Temp 98.4 98.4 Pulse 101 Resp 16 18 18 B/P (MAP) 107/65 (79) Pulse Ox 91 92 O2 Delivery Room Air Room Air Room Air Room Air O2 Flow Rate 06/28/19 06/28/19 06/28/19 11:00 13:18 14:37 Temp 98.4 98.4 Pulse 89 Resp 14 18 18 B/P (MAP) 103/68 (80) Pulse Ox 90 O2 Delivery Room Air Room Air Room Air Intake and Output 06/27/19 06/27/19 06/28/19 15:00 23:00 07:00 Intake Total 3100 ml 300 ml 150 ml Balance 3100 ml 300 ml 150 ml MARTINA RAUSCH MD Jun 28, 2019 15:42
[2019-06-28] MEDS ORDERED: POTASSIUM CHLORIDE 20 MEQ TABLET.ER. PO ONE (15:45)
[2019-06-28] MEDS ORDERED: ONDANSETRON PF 4 MG/2 ML VIAL. IV PRN (16:45)
[2019-06-28] MEDS: CIPROFLOXACIN 200MG PREMIX 100 ML IV SCH (19:24)
--- NOTE | 2019-06-28 19:30 | RAD ---
Targeted ultrasound of the right lower quadrant CLINICAL HISTORY: Right lower quadrant pain. Upper limits normal size appendix on CT scan of the previous day. FINDINGS: Targeted ultrasound performed in the right lower quadrant. A normal or abnormal appendix cannot be visualized. Visualization is compromised by bowel gas. IMPRESSION: Indeterminate exam. Appendix not visualized. Renal ultrasound CLINICAL HISTORY: Abnormal left kidney on CT scan. FINDINGS: Inferior vena cava is patent. Abdominal aorta is nonaneurysmal. Right kidney measures 12.3 x 4.6 x 4.7 cm without hydronephrosis. Left kidney measures 12.0 x 6.0 x 6.2 cm. Possible mild hydronephrosis. Low echogenicity lesion in the left kidney measuring 17 mm, most likely a cyst. IMPRESSION: 1. Mild left renal enlargement or swelling. 2. Probable small left ovarian cyst. 3. Abnormalities described of the left kidney on the CT scan of June 27, would best be monitored with short-term follow-up contrast-enhanced CT scan. Electronically signed by: Michael Cox MD (06/28/2019 6:04 PM) [email or web address]
[2019-06-28] MEDS: LACTOBACILLUS RHAMNOSUS GG 1 CAPSULE. PO SCH (21:45)
[2019-06-28] MEDS: POLYETHYLENE GLYCOL 3350 17 GM PACKET. PO SCH (21:45)
[2019-06-28] MEDS: PSYLLIUM HUSK (SUGAR FREE) 1 PKT PACKET PO SCH (21:45)
[2019-06-29] MEDS: MORPHINE SULFATE 2 MG/ML VIAL. IV PRN ×2 (02:41→08:31)
[2019-06-29 03:00] VITALS: BP 131/80
[2019-06-29] MEDS: ACETAMINOPHEN 325 MG TABLET. PO PRN (04:05)
[2019-06-29] MEDS: IV NORMAL SALINE 1000ML BAG 1,000 ML IV SCH ×2 (04:05→18:28)
[2019-06-29] MEDS: KETOROLAC 30 MG/ML VIAL. IV PRN ×2 (04:05→15:33)
[2019-06-29] MEDS: PIPERACILLIN/TAZOBACTAM 3.375 GM in IV NORMAL SALINE 50ML 50 ML IV SCH ×4 (06:01→23:55)
[2019-06-29 06:47] LABS: BASO # 0.1 x10^3/uL (0.0-0.2); BASO % 0 % (0-3); EOS # 0.1 x10^3/uL (0.0-0.7); EOS % 1 % (0-3); HEMATOCRIT 31.2 % (36.0-47.0); HEMOGLOBIN 10.4 g/dL (12.0-15.5); LYMPH # 1.1 x10^3/uL (1.0-4.8); LYMPH % 9 % (24-48); MEAN CORPUSCULAR HEMOGLOBIN 28 pg (25-35); MEAN CORPUSCULAR HGB CONC 33 g/dL (31-37); MEAN CORPUSCULAR VOLUME 82 fL (79-100); MONO % 8 % (0-9); NEUT # 10.2 x10^3/uL (1.8-7.7); NEUT % 82 % (31-73); PLATELET COUNT 243 x10^3/uL (140-400); RED BLOOD COUNT 3.79 x10^6/uL (3.50-5.40); WHITE BLOOD COUNT 12.5 x10^3/uL (4.0-11.0)
[2019-06-29 07:00] VITALS: BP 107/72
[2019-06-29 07:04] LABS: CREATININE 0.8 mg/dL (0.6-1.0); GFR 75.6; MAGNESIUM 1.8 mg/dL (1.8-2.4); POTASSIUM 3.4 mmol/L (3.5-5.1)
[2019-06-29] MEDS: LACTOBACILLUS RHAMNOSUS GG 1 CAPSULE. PO SCH ×2 (08:30→22:09)
[2019-06-29] MEDS: CIPROFLOXACIN 200MG PREMIX 100 ML IV SCH ×2 (08:30→22:46)
[2019-06-29 11:00] VITALS: BP 124/84
[2019-06-29] MEDS ORDERED: ASA/APAP/CAFFEINE 250/250/65MG TABLET. PO PRN (13:00)
[2019-06-29] MEDS: SUMAtriptan SUCCINATE 25 MG TABLET PO PRN ×2 (13:49→22:09)
--- NOTE | 2019-06-29 14:38 | PDOC ---
PROGRESS NOTES Chief Complaint Chief Complaint A/P: Acute abdominal pain - with her dysuria this does seem like pyelonephritis. Interestingly her pain is not on her left side or flank, but in RLQ. Her appendix is large, but doesn't appear inflamed on CT. Intractable headache - history of migraine, will give toradol prn. She is not on any prophylaxis ?lupus - she is uncertain or we are mistranslating. Given her hematuria and headache and incongruous CT and abdominal findings I will order RADHA and dsDNA now. Severe sepsis - blood cultures x2, urine culture. Empiric antibiotics for seems to be urosepsis, IVF. tylenol and toradol for fevers Transaminitis - likely 2/2 hypotension, will monitor, trended down Hypokalemia - will replace IV FEN - General diet. NSS 75cc/hr PPX - SCDs FULL CODE Dispo -inpatient for sepsis related to pyelonephritis History of Present Illness History of Present Illness Ms Bellamy is a 49yo azeri-speaking F w/ PMHx migraine, ?lupus who presents to ED c/o right flank pain radiating to the right lower quadrant as well as migraine headache that began 4 days ago. Patient denies any nausea, vomiting, photosensitivity, denies this being the worst headache in her life. Denies any exacerbating or relieving factors to her symptoms. Patient states she was seen yesterday at the PCPs office and was started on Bactrim for UTI. She states she has taken 2 doses with no improvement. CT shows left renal enhancement consistent with possible early pyelonephritis. She c/o RLQ pain, has no left flank pain on examination, only has OWUSU on further ROS. Had WBC 21.6, procalcitonin 6.61, Alkaline phosphatase 145, ALT 68 and had fever 101.6F and HR 122 bpm. Denies recent sick contacts, no change in bowel habits or recent travel. Given empiric zosyn and IVF per sepsis protocol in ED. She has not had a menstrual period in over a year. Urine test was negative. Patient is [place]-speaking and diplomatic interpreter line is used for [place] Overnight no further fevers. Still c/o headache today, states it is a bit worse, asking for morphine to relieve it. Urinating frequently. Still c/o RLQ pain, no left sided pain. WBC coming down. K 3.4 and mag 1.8. Facial rash worse today. She notes she has been seen by rheum, was taken off lupus medications. Urine culture negative. Vitals Vitals Vital Signs Date Time Temp Pulse Resp B/P (MAP) Pulse Ox O2 Delivery O2 Flow Rate FiO2 06/29/19 11:22 Room Air 06/29/19 11:00 98.0 91 20 124/84 (97) 90 98.0 Physical Exam General: Alert, Oriented X3, Cooperative, No acute distress Heart: Regular rate, Normal S1, Normal S2 Abdomen: Normal bowel sounds, No hepatosplenomegaly, No masses, Other (RLQ tender) Extremities: No clubbing, No cyanosis, No edema, Normal pulses, No tenderness/swelling Skin: No rashes, No breakdown, No significant lesion Labs LABS Laboratory Tests Test 06/29/19 06:05 White Blood Count 12.5 x10^3/uL (4.0-11.0) Red Blood Count 3.79 x10^6/uL (3.50-5.40) Hemoglobin 10.4 g/dL (12.0-15.5) Hematocrit 31.2 % (36.0-47.0) Mean Corpuscular Volume 82 fL (79-100) Mean Corpuscular Hemoglobin 28 pg (25-35) Mean Corpuscular Hemoglobin Concent 33 g/dL (31-37) Red Cell Distribution Width 14.0 % (11.5-14.5) Platelet Count 243 x10^3/uL (140-400) Neutrophils (%) (Auto) 82 % (31-73) Lymphocytes (%) (Auto) 9 % (24-48) Monocytes (%) (Auto) 8 % (0-9) Eosinophils (%) (Auto) 1 % (0-3) Basophils (%) (Auto) 0 % (0-3) Neutrophils # (Auto) 10.2 x10^3/uL (1.8-7.7) Lymphocytes # (Auto) 1.1 x10^3/uL (1.0-4.8) Monocytes # (Auto) 1.0 x10^3/uL (0.0-1.1) Eosinophils # (Auto) 0.1 x10^3/uL (0.0-0.7) Basophils # (Auto) 0.1 x10^3/uL (0.0-0.2) Sodium Level 141 mmol/L (136-145) Potassium Level 3.4 mmol/L (3.5-5.1) Chloride Level 106 mmol/L (98-107) Carbon Dioxide Level 23 mmol/L (21-32) Anion Gap 12 (6-14) Blood Urea Nitrogen 7 mg/dL (7-20) Creatinine 0.8 mg/dL (0.6-1.0) Estimated GFR (Cockcroft-Gault) 75.6 Glucose Level 98 mg/dL (70-99) Calcium Level 8.0 mg/dL (8.5-10.1) Magnesium Level 1.8 mg/dL (1.8-2.4) Assessment and Plan Assessmemt and Plan Problems Medical Problems: (1) Fever Status: Acute (2) Headache Status: Acute (3) Leukocytosis Status: Acute (4) Pyelonephritis Status: Acute (5) Severe sepsis Status: Acute Comment Review of Relevant I have reviewed the following items moy (where applicable) has been applied. Labs Laboratory Tests Test 06/28/19 04:45 06/29/19 06:05 White Blood Count 12.4 x10^3/uL (4.0-11.0) 12.5 x10^3/uL (4.0-11.0) Red Blood Count 3.82 x10^6/uL (3.50-5.40) 3.79 x10^6/uL (3.50-5.40) Hemoglobin 10.5 g/dL (12.0-15.5) 10.4 g/dL (12.0-15.5) Hematocrit 31.8 % (36.0-47.0) 31.2 % (36.0-47.0) Mean Corpuscular Volume 83 fL (79-100) 82 fL (79-100) Mean Corpuscular Hemoglobin 27 pg (25-35) 28 pg (25-35) Mean Corpuscular Hemoglobin Concent 33 g/dL (31-37) 33 g/dL (31-37) Red Cell Distribution Width 14.3 % (11.5-14.5) 14.0 % (11.5-14.5) Platelet Count 212 x10^3/uL (140-400) 243 x10^3/uL (140-400) Neutrophils (%) (Auto) 85 % (31-73) 82 % (31-73) Lymphocytes (%) (Auto) 9 % (24-48) 9 % (24-48) Monocytes (%) (Auto) 6 % (0-9) 8 % (0-9) Eosinophils (%) (Auto) 0 % (0-3) 1 % (0-3) Basophils (%) (Auto) 0 % (0-3) 0 % (0-3) Neutrophils # (Auto) 10.5 x10^3/uL (1.8-7.7) 10.2 x10^3/uL (1.8-7.7) Lymphocytes # (Auto) 1.1 x10^3/uL (1.0-4.8) 1.1 x10^3/uL (1.0-4.8) Monocytes # (Auto) 0.7 x10^3/uL (0.0-1.1) 1.0 x10^3/uL (0.0-1.1) Eosinophils # (Auto) 0.0 x10^3/uL (0.0-0.7) 0.1 x10^3/uL (0.0-0.7) Basophils # (Auto) 0.0 x10^3/uL (0.0-0.2) 0.1 x10^3/uL (0.0-0.2) Sodium Level 143 mmol/L (136-145) 141 mmol/L (136-145) Potassium Level 3.3 mmol/L (3.5-5.1) 3.4 mmol/L (3.5-5.1) Chloride Level 109 mmol/L (98-107) 106 mmol/L (98-107) Carbon Dioxide Level 23 mmol/L (21-32) 23 mmol/L (21-32) Anion Gap 11 (6-14) 12 (6-14) Blood Urea Nitrogen 6 mg/dL (7-20) 7 mg/dL (7-20) Creatinine 0.8 mg/dL (0.6-1.0) 0.8 mg/dL (0.6-1.0) Estimated GFR (Cockcroft-Gault) 75.6 75.6 BUN/Creatinine Ratio 8 (6-20) Glucose Level 102 mg/dL (70-99) 98 mg/dL (70-99) Calcium Level 7.6 mg/dL (8.5-10.1) 8.0 mg/dL (8.5-10.1) Total Bilirubin 1.1 mg/dL (0.2-1.0) Aspartate Amino Transf (AST/SGOT) 36 U/L (15-37) Alanine Aminotransferase (ALT/SGPT) 56 U/L (14-59) Alkaline Phosphatase 145 U/L (46-116) Total Protein 6.0 g/dL (6.4-8.2) Albumin 2.4 g/dL (3.4-5.0) Albumin/Globulin Ratio 0.7 (1.0-1.7) Magnesium Level 1.8 mg/dL (1.8-2.4) Laboratory Tests Test 06/29/19 06:05 White Blood Count 12.5 x10^3/uL (4.0-11.0) Red Blood Count 3.79 x10^6/uL (3.50-5.40) Hemoglobin 10.4 g/dL (12.0-15.5) Hematocrit 31.2 % (36.0-47.0) Mean Corpuscular Volume 82 fL (79-100) Mean Corpuscular Hemoglobin 28 pg (25-35) Mean Corpuscular Hemoglobin Concent 33 g/dL (31-37) Red Cell Distribution Width 14.0 % (11.5-14.5) Platelet Count 243 x10^3/uL (140-400) Neutrophils (%) (Auto) 82 % (31-73) Lymphocytes (%) (Auto) 9 % (24-48) Monocytes (%) (Auto) 8 % (0-9) Eosinophils (%) (Auto) 1 % (0-3) Basophils (%) (Auto) 0 % (0-3) Neutrophils # (Auto) 10.2 x10^3/uL (1.8-7.7) Lymphocytes # (Auto) 1.1 x10^3/uL (1.0-4.8) Monocytes # (Auto) 1.0 x10^3/uL (0.0-1.1) Eosinophils # (Auto) 0.1 x10^3/uL (0.0-0.7) Basophils # (Auto) 0.1 x10^3/uL (0.0-0.2) Sodium Level 141 mmol/L (136-145) Potassium Level 3.4 mmol/L (3.5-5.1) Chloride Level 106 mmol/L (98-107) Carbon Dioxide Level 23 mmol/L (21-32) Anion Gap 12 (6-14) Blood Urea Nitrogen 7 mg/dL (7-20) Creatinine 0.8 mg/dL (0.6-1.0) Estimated GFR (Cockcroft-Gault) 75.6 Glucose Level 98 mg/dL (70-99) Calcium Level 8.0 mg/dL (8.5-10.1) Magnesium Level 1.8 mg/dL (1.8-2.4) Microbiology 06/27/19 Blood Culture - Preliminary, Resulted NO GROWTH AFTER 2 DAYS 06/27/19 Urine Culture - Final, Complete 06/27/19 Urine Culture Result 1 (LAURIE) - Final, Complete Medications Current Medications Sodium Chloride 8,070 ml @ 8,070 mls/hr Q1H IV Last administered on 06/27/19at 11:22; Start 06/27/19 at 10:18; Stop 06/27/19 at 21:31; Status DC Piperacillin Sod/ Tazobactam Sod 4.5 gm/Sodium Chloride 100 ml @ 200 mls/hr 1X ONCE IV Last administered on 06/27/19at 11:21; Start 06/27/19 at 10:30; Stop 06/27/19 at 10:59; Status DC Morphine Sulfate (Morphine Sulfate) 4 mg PRN Q15MIN PRN IV/SQ PAIN GREATER THAN 3/10 Last administered on 06/27/19at 11:21; Start 06/27/19 at 10:30; Stop 06/28/19 at 10:29; Status DC Acetaminophen (Tylenol) 1,000 mg 1X ONCE PO Last administered on 06/27/19at 11:21; Start 06/27/19 at 10:30; Stop 06/27/19 at 10:50; Status DC Iohexol (Omnipaque 300 Mg/ml) 75 ml 1X ONCE IV Last administered on 06/27/19at 11:35; Start 06/27/19 at 11:30; Stop 06/27/19 at 11:31; Status DC Info (CONTRAST GIVEN -- Rx MONITORING) 1 each PRN DAILY PRN MC SEE COMMENTS Last administered on 06/27/19at 17:03; Start 06/27/19 at 11:30; Stop 06/29/19 at 11:29; Status DC Ciprofloxacin/ Dextrose 100 ml @ 100 mls/hr 1X ONCE IV Last administered on 06/27/19at 14:18; Start 06/27/19 at 14:00; Stop 06/27/19 at 14:59; Status DC Ondansetron HCl (Zofran) 4 mg PRN Q8HRS PRN IV NAUSEA/VOMITING Last administered on 06/28/19at 09:07; Start 06/27/19 at 16:15; Stop 06/28/19 at 16:14; Status DC Morphine Sulfate (Morphine Sulfate) 2 mg PRN Q2HR PRN IV PAIN Last administered on 06/28/19at 13:18; Start 06/27/19 at 16:15; Stop 06/28/19 at 16:14; Status DC Acetaminophen (Tylenol) 650 mg PRN Q4HRS PRN PO FEVER Last administered on 06/28/19at 09:07; Start 06/27/19 at 16:15; Stop 06/28/19 at 16:14; Status DC Sodium Chloride 1,000 ml @ 125 mls/hr 1X ONCE IV Last administered on 06/27at 16:56; Start 06/27/19 at 16:15; Stop 06/28/19 at 00:14; Status DC Ketorolac Tromethamine (Toradol 30mg Vial) 30 mg PRN Q6HRS PRN IV PAIN Last administered on 06/29/19at 04:05; Start 06/27/19 at 16:30; Stop 07/02/19 at 16:29 Levofloxacin/ Dextrose 100 ml @ 100 mls/hr 1X ONCE IV ; Start 06/27/19 at 18:15; Stop 06/27/19 at 19:14; Status UNV Enoxaparin Sodium (Lovenox 40mg Syringe) 40 mg 1X ONCE SQ Last administered on 06/27/19at 21:47; Start 06/27/19 at 21:30; Stop 06/27/19 at 21:32; Status DC Sodium Chloride 1,000 ml @ 75 mls/hr [id number] IV Last administered on 06/29/19 04:05; Start 06/27/19 at 21:30 Piperacillin Sod/ Tazobactam Sod 3.375 gm/Sodium Chloride 50 ml @ 100 mls/hr Q6HRS IV Last administered on 06/29/19 12:30; Start 06/27/19 at 22:30 Psyllium Hydrophilic Mucilloid (Metamucil Fiber Packet) 1 pkt QHS PO Last administered on 06/28/19 21:45; Start 06/27/19 at 22:30 Polyethylene Glycol (miraLAX PACKET) 17 gm QHS PO Last administered on 06/28/19 21:45; Start 06/27/19 at 22:30 Potassium Chloride (Klor-Con) 40 meq 1X ONCE PO Last administered on 06/28/19 17:06; Start 06/28/19 at 15:45; Stop 06/28/19 at 15:46; Status DC Lactobacillus Rhamnosus (Culturelle) 1 cap BID PO Last administered on 06/29/19 08:30; Start 06/28/19 at 21:00 Ciprofloxacin/ Dextrose 100 ml @ 100 mls/hr Q12HR IV Last administered on 06/29/19 08:30; Start 06/28/19 at 18:00 Ondansetron HCl (Zofran) 4 mg PRN Q6HRS PRN IV NAUSEA/VOMITING Last administered on 06/28/19 17:06; Start 06/28/19 at 16:45 Morphine Sulfate (Morphine Sulfate) 2 mg PRN Q2HR PRN IV MODERATE PAIN Last administered on 06/29/19 08:31; Start 06/28/19 at 16:45 Acetaminophen (Tylenol) 650 mg PRN Q6HRS PRN PO fever/pain Last administered on 06/29/19 04:05; Start 06/28/19 at 16:45 Sumatriptan Succinate (Imitrex) 25 mg PRN Q2HR PRN PO MIGRAINE HEADACHE Last administered on 06/29/19 13:52; Start 06/29/19 at 13:00 Acetaminophen/ Aspirin/Caffeine (Excedrin Migraine) 1 tab PRN Q6HRS PRN PO MIGRAINE HEADACHE; Start 06/29/19 at 13:00 Vitals/I & O Vital Sign - Last 24 Hours 906/28/19 06/28/19 06/28/19 15:00 17:06 18:22 19:00 Temp 101.3 98.4 101.3 98.4 Pulse 123 100 Resp 18 20 18 20 B/P (MAP) 127/66 (86) 122/78 (93) Pulse Ox 94 91 O2 Delivery Room Air Room Air Room Air Room Air 06/28/19 06/28/19 06/28/19 06/28/19 19:29 21:50 23:00 23:21 Temp 98.4 98.4 Pulse 89 Resp 20 18 20 B/P (MAP) 107/70 (82) Pulse Ox 90 O2 Delivery Room Air Room Air Room Air Room Air 06/29/19 06/29/19 06/29/19 06/29/19 02:41 03:00 03:15 07:00 Temp 98.9 98.2 98.9 98.2 Pulse 117 94 Resp 20 18 20 B/P (MAP) 131/80 (97) 107/72 (84) Pulse Ox 90 91 90 O2 Delivery Room Air Room Air Room Air Room Air 06/29/19 06/29/19 06/29/19 06/29/19 07:55 08:31 11:00 11:22 Temp 98.0 98.0 Pulse 91 Resp 20 B/P (MAP) 124/84 (97) Pulse Ox 90 O2 Delivery Room Air Room Air Room Air Room Air Intake and Output 06/28/19 06/28/19 06/29/19 15:00 23:00 07:00 Intake Total 1630 ml 750 ml Balance 1630 ml 750 ml MARTINA RAUSCH MD Jun 29, 2019 14:38
[2019-06-29] MEDS ORDERED: POTASSIUM CHLORIDE 20 MEQ TABLET.ER. PO ONE (14:45)
[2019-06-29 15:00] VITALS: BP 125/90
[2019-06-29] MEDS ORDERED: MAGNESIUM SULFATE 2GM 50 ML IV ONE (15:00)
[2019-06-29 19:00] VITALS: BP 121/84
[2019-06-29] MEDS: PSYLLIUM HUSK (SUGAR FREE) 1 PKT PACKET PO SCH (22:09)
[2019-06-29] MEDS: POLYETHYLENE GLYCOL 3350 17 GM PACKET. PO SCH (22:10)
[2019-06-29 23:00] VITALS: BP 128/87
[2019-06-30] MEDS: KETOROLAC 30 MG/ML VIAL. IV PRN (00:07)
[2019-06-30 03:00] VITALS: BP 130/72
[2019-06-30] MEDS: PIPERACILLIN/TAZOBACTAM 3.375 GM in IV NORMAL SALINE 50ML 50 ML IV SCH ×4 (05:51→22:25)
[2019-06-30 07:05] VITALS: BP 97/60
[2019-06-30] MEDS: LACTOBACILLUS RHAMNOSUS GG 1 CAPSULE. PO SCH ×2 (08:50→20:44)
[2019-06-30] MEDS: CIPROFLOXACIN 200MG PREMIX 100 ML IV SCH ×2 (08:51→20:44)
[2019-06-30] MEDS: IV NORMAL SALINE 1000ML BAG 1,000 ML IV SCH ×2 (08:52→20:43)
--- NOTE | 2019-06-30 09:05 | PDOC ---
PROGRESS NOTES Chief Complaint Chief Complaint A/P: Acute abdominal pain - with her dysuria this does seem like pyelonephritis. Interestingly her pain is not on her left side or flank, but in RLQ. Her appendix is large, but doesn't appear inflamed on CT. Intractable headache - history of migraine, will give toradol prn. She is not on any prophylaxis ?lupus - she is uncertain or we are mistranslating. Given her hematuria and headache and incongruous CT and abdominal findings I will order RADHA and dsDNA now. Severe sepsis - blood cultures x2, urine culture. Empiric antibiotics for seems to be urosepsis, IVF. tylenol and toradol for fevers Transaminitis - likely 2/2 hypotension, will monitor, trended down Hypokalemia - will replace IV FEN - General diet. NSS 75cc/hr PPX - SCDs FULL CODE Dispo -inpatient for sepsis related to pyelonephritis History of Present Illness History of Present Illness Ms Bellamy is a 49yo sinhala-speaking F w/ PMHx migraine, ?lupus who presents to ED c/o right flank pain radiating to the right lower quadrant as well as migraine headache that began 4 days ago. Patient denies any nausea, vomiting, photosensitivity, denies this being the worst headache in her life. Denies any exacerbating or relieving factors to her symptoms. Patient states she was seen yesterday at the PCPs office and was started on Bactrim for UTI. She states she has taken 2 doses with no improvement. CT shows left renal enhancement consistent with possible early pyelonephritis. She c/o RLQ pain, has no left flank pain on examination, only has OWUSU on further ROS. Had WBC 21.6, procalcitonin 6.61, Alkaline phosphatase 145, ALT 68 and had fever 101.6F and HR 122 bpm. Denies recent sick contacts, no change in bowel habits or recent travel. Given empiric zosyn and IVF per sepsis protocol in ED. She has not had a menstrual period in over a year. Urine test was negative. Patient is [place]-speaking and diplomatic interpreter line is used for [place] 06/29: Overnight no further fevers. Still c/o headache today, states it is a bit worse, asking for morphine to relieve it. Urinating frequently. Still c/o RLQ pain, no left sided pain. WBC coming down. K 3.4 and mag 1.8. Facial rash worse today. She notes she has been seen by rheum, was taken off lupus medications. Urine culture negative. Her headache has improved, still with some rigors, still with nausea and vomiting, not holding down all food. She c/o some SOB and wheezing today. Plan: D dimer, if positive, will check CTPA, on ppx lovenox already Nebs prn Cont antibiotics I have d/w rheumatology over the phone if her renal function worsens will consult nephrology and IR and obtain renal biopsy. Otherwise await dsDNA and RADHA results, do not start lupus meds yet as she does not have a diagnosis at this time Vitals Vitals Vital Signs Date Time Temp Pulse Resp B/P (MAP) Pulse Ox O2 Delivery O2 Flow Rate FiO2 06/30/19 07:05 97.9 88 16 97/60 (72) 94 Room Air 97.9 Physical Exam General: Alert, Oriented X3, Cooperative, No acute distress Heart: Regular rate, Normal S1, Normal S2 Abdomen: Normal bowel sounds, No hepatosplenomegaly, No masses, Other (RLQ tender) Extremities: No clubbing, No cyanosis, No edema, Normal pulses, No tenderness/swelling Skin: No rashes, No breakdown, No significant lesion Assessment and Plan Assessmemt and Plan Problems Medical Problems: (1) Fever Status: Acute (2) Headache Status: Acute (3) Leukocytosis Status: Acute (4) Pyelonephritis Status: Acute (5) Severe sepsis Status: Acute Comment Review of Relevant I have reviewed the following items moy (where applicable) has been applied. Labs Laboratory Tests Test 06/29/19 06:05 White Blood Count 12.5 x10^3/uL (4.0-11.0) Red Blood Count 3.79 x10^6/uL (3.50-5.40) Hemoglobin 10.4 g/dL (12.0-15.5) Hematocrit 31.2 % (36.0-47.0) Mean Corpuscular Volume 82 fL (79-100) Mean Corpuscular Hemoglobin 28 pg (25-35) Mean Corpuscular Hemoglobin Concent 33 g/dL (31-37) Red Cell Distribution Width 14.0 % (11.5-14.5) Platelet Count 243 x10^3/uL (140-400) Neutrophils (%) (Auto) 82 % (31-73) Lymphocytes (%) (Auto) 9 % (24-48) Monocytes (%) (Auto) 8 % (0-9) Eosinophils (%) (Auto) 1 % (0-3) Basophils (%) (Auto) 0 % (0-3) Neutrophils # (Auto) 10.2 x10^3/uL (1.8-7.7) Lymphocytes # (Auto) 1.1 x10^3/uL (1.0-4.8) Monocytes # (Auto) 1.0 x10^3/uL (0.0-1.1) Eosinophils # (Auto) 0.1 x10^3/uL (0.0-0.7) Basophils # (Auto) 0.1 x10^3/uL (0.0-0.2) Sodium Level 141 mmol/L (136-145) Potassium Level 3.4 mmol/L (3.5-5.1) Chloride Level 106 mmol/L (98-107) Carbon Dioxide Level 23 mmol/L (21-32) Anion Gap 12 (6-14) Blood Urea Nitrogen 7 mg/dL (7-20) Creatinine 0.8 mg/dL (0.6-1.0) Estimated GFR (Cockcroft-Gault) 75.6 Glucose Level 98 mg/dL (70-99) Calcium Level 8.0 mg/dL (8.5-10.1) Magnesium Level 1.8 mg/dL (1.8-2.4) Microbiology 06/27/19 Blood Culture - Preliminary, Resulted NO GROWTH AFTER 2 DAYS 06/27/19 Urine Culture - Final, Complete 06/27/19 Urine Culture Result 1 (LAURIE) - Final, Complete Medications Current Medications Sodium Chloride 8,070 ml @ 8,070 mls/hr Q1H IV Last administered on 06/27/19at 11:22; Start 06/27/19 at 10:18; Stop 06/27/19 at 21:31; Status DC Piperacillin Sod/ Tazobactam Sod 4.5 gm/Sodium Chloride 100 ml @ 200 mls/hr 1X ONCE IV Last administered on 06/27/19at 11:21; Start 06/27/19 at 10:30; Stop 06/27/19 at 10:59; Status DC Morphine Sulfate (Morphine Sulfate) 4 mg PRN Q15MIN PRN IV/SQ PAIN GREATER THAN 3/10 Last administered on 06/27/19 11:21; Start 06/27/19 at 10:30; Stop 06/28/19 at 10:29; Status DC Acetaminophen (Tylenol) 1,000 mg 1X ONCE PO Last administered on 06/27/19 11:21; Start 06/27/19 at 10:30; Stop 06/27/19 at 10:50; Status DC Iohexol (Omnipaque 300 Mg/ml) 75 ml 1X ONCE IV Last administered on 06/27/19 11:35; Start 06/27/19 at 11:30; Stop 06/27/19 at 11:31; Status DC Info (CONTRAST GIVEN -- Rx MONITORING) 1 each PRN DAILY PRN MC SEE COMMENTS Last administered on 06/27/19 17:03; Start 06/27/19 at 11:30; Stop 06/29/19 at 11:29; Status DC Ciprofloxacin/ Dextrose 100 ml @ 100 mls/hr 1X ONCE IV Last administered on 06/27/19 14:18; Start 06/27/19 at 14:00; Stop 06/27/19 at 14:59; Status DC Ondansetron HCl (Zofran) 4 mg PRN Q8HRS PRN IV NAUSEA/VOMITING Last administered on 06/28/19 09:07; Start 06/27/19 at 16:15; Stop 06/28/19 at 16:14; Status DC Morphine Sulfate (Morphine Sulfate) 2 mg PRN Q2HR PRN IV PAIN Last administered on 06/28/19 13:18; Start 06/27/19 at 16:15; Stop 06/28/19 at 16:14; Status DC Acetaminophen (Tylenol) 650 mg PRN Q4HRS PRN PO FEVER Last administered on 06/28/19 09:07; Start 06/27/19 at 16:15; Stop 06/28/19 at 16:14; Status DC Sodium Chloride 1,000 ml @ 125 mls/hr 1X ONCE IV Last administered on 06/27/19 16:56; Start 06/27/19 at 16:15; Stop 06/28/19 at 00:14; Status DC Ketorolac Tromethamine (Toradol 30mg Vial) 30 mg PRN Q6HRS PRN IV MILD PAIN 1-3 Last administered on 06/30/19 00:07; Start 06/27/19 at 16:30; Stop 07/02/19 at 16:29 Levofloxacin/ Dextrose 100 ml @ 100 mls/hr 1X ONCE IV ; Start 06/27/19 at 18:15; Stop 06/27/19 at 19:14; Status UNV Enoxaparin Sodium (Lovenox 40mg Syringe) 40 mg 1X ONCE SQ Last administered on 06/27/19at 21:47; Start 06/27/19 at 21:30; Stop 06/27/19 at 21:32; Status DC Sodium Chloride 1,000 ml @ 75 mls/hr [id number] IV Last administered on 06/30/19 08:52; Start 06/27/19 at 21:30 Piperacillin Sod/ Tazobactam Sod 3.375 gm/Sodium Chloride 50 ml @ 100 mls/hr Q6HRS IV Last administered on 06/30/19 05:54; Start 06/27/19 at 22:30 Psyllium Hydrophilic Mucilloid (Metamucil Fiber Packet) 1 pkt QHS PO Last administered on 06/29/19 22:13; Start 06/27/19 at 22:30 Polyethylene Glycol (miraLAX PACKET) 17 gm QHS PO Last administered on 06/29/19 22:13; Start 06/27/19 at 22:30 Potassium Chloride (Klor-Con) 40 meq 1X ONCE PO Last administered on 06/28/19 17:06; Start 06/28/19 at 15:45; Stop 06/28/19 at 15:46; Status DC Lactobacillus Rhamnosus (Culturelle) 1 cap BID PO Last administered on 06/30/19 08:52; Start 06/28/19 at 21:00 Ciprofloxacin/ Dextrose 100 ml @ 100 mls/hr Q12HR IV Last administered on 06/30/19 08:52; Start 06/28/19 at 18:00 Ondansetron HCl (Zofran) 4 mg PRN Q6HRS PRN IV NAUSEA/VOMITING Last administered on 06/28/19 17:06; Start 06/28/19 at 16:45 Morphine Sulfate (Morphine Sulfate) 2 mg PRN Q2HR PRN IV MODERATE-SEVERE PAIN Last administered on 06/29/19 08:31; Start 06/28/19 at 16:45 Acetaminophen (Tylenol) 650 mg PRN Q6HRS PRN PO fever/pain Last administered on 06/29/19at 04:05; Start 06/28/19 at 16:45 Sumatriptan Succinate (Imitrex) 25 mg PRN Q2HR PRN PO MIGRAINE HEADACHE Last administered on 06/29/19at 22:13; Start 06/29/19 at 13:00 Acetaminophen/ Aspirin/Caffeine (Excedrin Migraine) 1 tab PRN Q6HRS PRN PO MIGRAINE HEADACHE Last administered on 06/29/19 15:34; Start 06/29/19 at 13:00 Potassium Chloride (Klor-Con) 40 meq 1X ONCE PO Last administered on 06/29/19 15:34; Start 06/29/19 at 14:45; Stop 06/29/19 at 14:46; Status DC Magnesium Sulfate 50 ml @ 25 mls/hr 1X ONCE IV Last administered on 06/29/19 15:34; Start 06/29/19 at 15:00; Stop 06/29/19 at 16:59; Status DC Vitals/I & O Vital Sign - Last 24 Hours 06/29/19 06/29/19 06/29/19 06/29/19 11:00 11:22 15:00 19:00 Temp 98.0 98.0 98.4 98.0 98.0 98.4 Pulse 91 109 99 Resp 20 20 20 B/P (MAP) 124/84 (97) 125/90 (102) 121/84 (96) Pulse Ox 90 90 91 O2 Delivery Room Air Room Air Room Air 06/29/19 06/29/19 06/30/19 06/30/19 20:00 23:00 03:00 07:05 Temp 99.0 98.9 97.9 99.0 98.9 97.9 Pulse 95 88 88 Resp 18 18 16 B/P (MAP) 128/87 (101) 130/72 (91) 97/60 (72) Pulse Ox 94 94 O2 Delivery Room Air Room Air Intake and Output 06/29/19 06/29/19 06/30/19 14:59 22:59 06:59 Intake Total 550 ml 1300 ml 560 ml Balance 550 ml 1300 ml 560 ml MARTINA RAUSCH MD Jun 30, 2019 09:04
[2019-06-30 10:02] VITALS: BP 117/81
[2019-06-30] MEDS: ENOXAPARIN 40 MG/0.4 ML SYRINGE. SQ SCH (13:21)
[2019-06-30] MEDS: SUMAtriptan SUCCINATE 25 MG TABLET PO PRN ×2 (13:24→20:55)
[2019-06-30] MEDS: IPRATRPIUM/ALBUTEROL 0.5/2.5MG 3 ML NEBU. NEB SCH ×3 (13:39→19:44)
[2019-06-30 14:18] VITALS: BP 115/65
[2019-06-30] MEDS ORDERED: IOHEXOL 350 MG/ML 100 ML VIAL. IV ONE (14:45)
[2019-06-30] MEDS ORDERED: CONTRAST GIVEN. MC PRN (14:45)
--- NOTE | 2019-06-30 15:55 | RAD ---
CTA scan of the Chest with Contrast (Pulmonary Embolism protocol) 06/30/2019 Clinical History: Chest pain tachycardia elevated d-dimer. Technique: After the intravenous administration of 90 cc of Isovue-370, contiguous, 0.625 mm axial sections were obtained through the chest. 2 mm axial and 3D MIP coronal and sagittal reconstructed images were obtained. One or more of the following individualized dose reduction techniques were utilized for this study: 1. Automated exposure control. 2. Adjustment of the mA and/or kV according to patient size. 3. Use of iterative reconstruction technique. Findings: No filling defect is seen within the major branches of either pulmonary artery. There is no CT evidence of pulmonary embolism. The heart is mildly enlarged. Atherosclerotic calcification thoracic aorta is seen. The thoracic aorta tapers normally. Small calcified hilar lymph nodes are seen. There are small bilateral pleural effusions, left greater than right. Dependent atelectasis is seen involving both lungs. Atelectasis is seen involving both lower lobes, left greater than right. No pneumothorax is seen. Images through the upper abdomen demonstrate decreased attenuation liver parenchyma consistent with fatty infiltration. Impression: There is no CT evidence of pulmonary embolism. Electronically signed by: Chintan Gr MD (06/30/2019 3:51 PM) [facility]
[2019-06-30 19:00] VITALS: BP 117/81
[2019-06-30] MEDS: PSYLLIUM HUSK (SUGAR FREE) 1 PKT PACKET PO SCH (20:45)
[2019-06-30] MEDS: POLYETHYLENE GLYCOL 3350 17 GM PACKET. PO SCH (20:55)
[2019-06-30 23:00] VITALS: BP 104/58
[2019-07-01 03:00] VITALS: BP 113/62
[2019-07-01] MEDS: PIPERACILLIN/TAZOBACTAM 3.375 GM in IV NORMAL SALINE 50ML 50 ML IV SCH ×2 (04:27→12:38)
[2019-07-01 07:00] VITALS: BP 124/76
[2019-07-01] MEDS: IPRATRPIUM/ALBUTEROL 0.5/2.5MG 3 ML NEBU. NEB SCH ×3 (07:06→15:57)
[2019-07-01] MEDS: SUMAtriptan SUCCINATE 25 MG TABLET PO PRN (07:17)
[2019-07-01] MEDS: IV NORMAL SALINE 1000ML BAG 1,000 ML IV SCH (07:18)
[2019-07-01 08:04] LABS: ALBUMIN 2.6 g/dL (3.4-5.0); ALBUMIN/GLOBULIN RATIO 0.6 (1.0-1.7); CALCIUM 8.7 mg/dL (8.5-10.1); CREATININE 0.8 mg/dL (0.6-1.0); GFR 75.6; MAGNESIUM 2.1 mg/dL (1.8-2.4); POTASSIUM 3.7 mmol/L (3.5-5.1); TOTAL BILIRUBIN 0.5 mg/dL (0.2-1.0); TOTAL PROTEIN 7.1 g/dL (6.4-8.2)
[2019-07-01 08:13] LABS: BASO # 0.1 x10^3/uL (0.0-0.2); BASO % 1 % (0-3); EOS # 0.2 x10^3/uL (0.0-0.7); EOS % 2 % (0-3); HEMATOCRIT 33.7 % (36.0-47.0); HEMOGLOBIN 11.3 g/dL (12.0-15.5); LYMPH # 1.5 x10^3/uL (1.0-4.8); LYMPH % 15 % (24-48); MEAN CORPUSCULAR HEMOGLOBIN 27 pg (25-35); MEAN CORPUSCULAR HGB CONC 34 g/dL (31-37); MEAN CORPUSCULAR VOLUME 82 fL (79-100); MONO # 1.3 x10^3/uL (0.0-1.1); MONO % 12 % (0-9); NEUT # 7.3 x10^3/uL (1.8-7.7); NEUT % 70 % (31-73); PLATELET COUNT 406 x10^3/uL (140-400); RED BLOOD COUNT 4.13 x10^6/uL (3.50-5.40); RED CELL DISTRIBUTION WIDTH 14.4 % (11.5-14.5); WHITE BLOOD COUNT 10.5 x10^3/uL (4.0-11.0)
[2019-07-01] MEDS: LACTOBACILLUS RHAMNOSUS GG 1 CAPSULE. PO SCH (09:30)
[2019-07-01] MEDS: CIPROFLOXACIN 200MG PREMIX 100 ML IV SCH (09:31)
[2019-07-01 10:14] LABS: ANTI-DS DNA 5 IU/mL (0-9)
[2019-07-01 11:00] VITALS: BP 118/79
[2019-07-01] MEDS: ENOXAPARIN 40 MG/0.4 ML SYRINGE. SQ SCH (12:34)
[2019-07-01] MEDS ORDERED: LEVO500T59 PO (13:37)
[2019-07-01] MEDS ORDERED: SUMA25TA3 PO (13:37)
[2019-07-01] MEDS ORDERED: ALBU2.5V8 INH (13:37)
[2019-07-01] MEDS ORDERED: BENZ100C PO (13:37)
--- NOTE | 2019-07-01 13:40 | PDOC3 ---
Discharge Summary Visit Information Date of Admission: Jun 27, 2019 Date of Discharge: Jul 01, 2019 Admitting Diagnosis Comment: No UTI Initial thoughts pyelonephritis Acute bronchitis-no pneumonia No PE Overweight BMI 27 Cough Final Diagnosis Problems Medical Problems: (1) Fever Status: Acute (2) Headache Status: Acute (3) Leukocytosis Status: Acute (4) Pyelonephritis Status: Acute (5) Severe sepsis Status: Acute Brief Hospital Course Allergies Allergies Coded Allergies Type Severity Reaction Last Updated Verified No Known Drug Allergies 06/27/19 No Vital Signs Vital Signs Date Time Temp Pulse Resp B/P (MAP) Pulse Ox O2 Delivery O2 Flow Rate FiO2 07/01/19 11:15 98 Room Air 07/01/19 11:00 98.2 90 17 118/79 (92) 98.2 Lab Results Laboratory Tests Test 06/30/19 12:45 07/01/19 06:05 D-Dimer (Cyndie) 3.34 ug/mlFEU (0.00-0.50) White Blood Count 10.5 x10^3/uL (4.0-11.0) Red Blood Count 4.13 x10^6/uL (3.50-5.40) Hemoglobin 11.3 g/dL (12.0-15.5) Hematocrit 33.7 % (36.0-47.0) Mean Corpuscular Volume 82 fL (79-100) Mean Corpuscular Hemoglobin 27 pg (25-35) Mean Corpuscular Hemoglobin Concent 34 g/dL (31-37) Red Cell Distribution Width 14.4 % (11.5-14.5) Platelet Count 406 x10^3/uL (140-400) Neutrophils (%) (Auto) 70 % (31-73) Lymphocytes (%) (Auto) 15 % (24-48) Monocytes (%) (Auto) 12 % (0-9) Eosinophils (%) (Auto) 2 % (0-3) Basophils (%) (Auto) 1 % (0-3) Neutrophils # (Auto) 7.3 x10^3/uL (1.8-7.7) Lymphocytes # (Auto) 1.5 x10^3/uL (1.0-4.8) Monocytes # (Auto) 1.3 x10^3/uL (0.0-1.1) Eosinophils # (Auto) 0.2 x10^3/uL (0.0-0.7) Basophils # (Auto) 0.1 x10^3/uL (0.0-0.2) Sodium Level 145 mmol/L (136-145) Potassium Level 3.7 mmol/L (3.5-5.1) Chloride Level 108 mmol/L (98-107) Carbon Dioxide Level 25 mmol/L (21-32) Anion Gap 12 (6-14) Blood Urea Nitrogen 6 mg/dL (7-20) Creatinine 0.8 mg/dL (0.6-1.0) Estimated GFR (Cockcroft-Gault) 75.6 BUN/Creatinine Ratio 8 (6-20) Glucose Level 96 mg/dL (70-99) Calcium Level 8.7 mg/dL (8.5-10.1) Magnesium Level 2.1 mg/dL (1.8-2.4) Total Bilirubin 0.5 mg/dL (0.2-1.0) Aspartate Amino Transf (AST/SGOT) 66 U/L (15-37) Alanine Aminotransferase (ALT/SGPT) 93 U/L (14-59) Alkaline Phosphatase 176 U/L (46-116) Total Protein 7.1 g/dL (6.4-8.2) Albumin 2.6 g/dL (3.4-5.0) Albumin/Globulin Ratio 0.6 (1.0-1.7) Laboratory Tests Test 07/01/19 06:05 White Blood Count 10.5 x10^3/uL (4.0-11.0) Red Blood Count 4.13 x10^6/uL (3.50-5.40) Hemoglobin 11.3 g/dL (12.0-15.5) Hematocrit 33.7 % (36.0-47.0) Mean Corpuscular Volume 82 fL (79-100) Mean Corpuscular Hemoglobin 27 pg (25-35) Mean Corpuscular Hemoglobin Concent 34 g/dL (31-37) Red Cell Distribution Width 14.4 % (11.5-14.5) Platelet Count 406 x10^3/uL (140-400) Neutrophils (%) (Auto) 70 % (31-73) Lymphocytes (%) (Auto) 15 % (24-48) Monocytes (%) (Auto) 12 % (0-9) Eosinophils (%) (Auto) 2 % (0-3) Basophils (%) (Auto) 1 % (0-3) Neutrophils # (Auto) 7.3 x10^3/uL (1.8-7.7) Lymphocytes # (Auto) 1.5 x10^3/uL (1.0-4.8) Monocytes # (Auto) 1.3 x10^3/uL (0.0-1.1) Eosinophils # (Auto) 0.2 x10^3/uL (0.0-0.7) Basophils # (Auto) 0.1 x10^3/uL (0.0-0.2) Sodium Level 145 mmol/L (136-145) Potassium Level 3.7 mmol/L (3.5-5.1) Chloride Level 108 mmol/L (98-107) Carbon Dioxide Level 25 mmol/L (21-32) Anion Gap 12 (6-14) Blood Urea Nitrogen 6 mg/dL (7-20) Creatinine 0.8 mg/dL (0.6-1.0) Estimated GFR (Cockcroft-Gault) 75.6 BUN/Creatinine Ratio 8 (6-20) Glucose Level 96 mg/dL (70-99) Calcium Level 8.7 mg/dL (8.5-10.1) Magnesium Level 2.1 mg/dL (1.8-2.4) Total Bilirubin 0.5 mg/dL (0.2-1.0) Aspartate Amino Transf (AST/SGOT) 66 U/L (15-37) Alanine Aminotransferase (ALT/SGPT) 93 U/L (14-59) Alkaline Phosphatase 176 U/L (46-116) Total Protein 7.1 g/dL (6.4-8.2) Albumin 2.6 g/dL (3.4-5.0) Albumin/Globulin Ratio 0.6 (1.0-1.7) Brief Hospital Course Ms. Parker is a 49 old Lithuanian only speaking female, initially came in for thoughts of pyelonephritis based on CAT scan and clinical findings, got Cipro and another antibiotic by colleague. Urine culture is negative. But most bothersome to the patient is cough and SOA, cannot take a deep breath or coughs when she takes deep breaths.DEnies nocturnal cough at home, Nonsmoker, no history of COPD. CTA fails to show any PE but shows some interstitial lung markings and bilateral small pleural effusions left greater than right. Did consult pulmonary, seems okay to DC on by mouth antibiotics, follow-up as needed. Discussed with Dr. Escobedo, recommend abx I Rxd pro-air antibiotic, Tessalon Perles, she was getting some Imitrex for headaches here Consults performed pulmonary Procedures performed none just CTA chest No PT needs Discharge Information Condition at Discharge: Improved, Stable Disposition/Orders: D/C to Home Scheduled Benzonatate (Tessalon Perle) 100 Mg Capsule, 1 CAP PO TID for cougjh, #21 Prescribed by: KMI MCKEON on 07/01/19 1337 Levofloxacin (Levaquin) 500 Mg Tablet, 1 TAB PO DAILY for brinchitis, #10 Prescribed by: KIM MCKEON on 07/01/19 1337 Scheduled PRN Albuterol Sulfate (Proair Hfa Inhaler) 8.5 Gm Hfa.aer.ad, 1 PUFF INH PRN Q6HRS PRN for SHORTNESS OF BREATH for 30 Days, Ref 0 Prescribed by: KIM MCKEON on 07/01/19 1337 Sumatriptan Succinate (Imitrex) 25 Mg Tablet, 25 MG PO PRN Q2HR PRN for MIGRAINE HEADACHE, #30 Prescribed by: IKM MCKEON on 07/01/19 1337 KIM MCKEON MD Jul 01, 2019 13:40
--- NOTE | 2019-07-01 14:08 | CONS ---
DATE OF CONSULTATION: PULMONARY CONSULTATION ATTENDING PHYSICIAN: Dr. Bowen. REASON FOR CONSULTATION: Possible pneumonia and cough. HISTORY OF PRESENT ILLNESS: The patient is a 49-year-old female who does not speak Bahraini, she is Italian speaking. She has a questionable history of lupus. She came into the hospital with right flank pain radiating to the right lower quadrant. The patient has been treated with pyelonephritis. She underwent CT angiogram of the chest, which was reviewed by me. The patient was having cough with some pleuritic chest pains. She has small bilateral pleural effusions. She has left lower lobe infiltrate versus atelectasis. There is minimal atelectasis seen in the right lower lobe as well. There was no evidence of any pulmonary embolism. The patient is in the process of getting discharged. She has been afebrile. I am unable to obtain detailed history from the patient, but from the history and physical, she does not have any smoking history. Her white cell count is back to normal. Currently, she is on nebulizer treatments along with Zosyn and Cipro. PAST MEDICAL HISTORY: Significant for migraine. PAST SURGICAL HISTORY: Cholecystectomy. FAMILY HISTORY: Diabetes. SOCIAL HISTORY: Nonsmoker. Nonalcoholic. ALLERGIES: None. MEDICATIONS: Reviewed as listed in the [facility]AD. PHYSICAL EXAMINATION: VITAL SIGNS: Reviewed. NECK: Supple. LUNGS: With slightly diminished breath sound at left base. CARDIOVASCULAR: With a regular rate. ABDOMEN: Soft. EXTREMITIES: With no pitting edema. LABORATORY DATA: Reviewed. White cell count down to 10.5, hemoglobin 11.3. BUN and creatinine 6 and 0.8. IMPRESSION: 1. The patient with abnormal CT chest with no evidence of pulmonary embolism, but bibasilar small effusions and left lower lobe atelectasis versus infiltrate. She does have a cough, but no fever and leukocytosis is now back to normal. I think it would be reasonable to keep her on antibiotic orally to go home while being treated for pyelonephritis. 2. Acute pyelonephritis. RECOMMENDATIONS: 1. Discussed with Dr. Landon. Okay to discharge home on oral antibiotics, quinolones. 2. Follow with PCP as an outpatient. LIMA GONZALEZ MD DR: SARA/alexandria JOB#: [id number] / [id number]
[2019-07-01 15:00] VITALS: BP 121/82
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
--- NOTE | 2019-07-01 18:54 | NUR ---
Discharge Note: Patient was discharged home with self care. Patients IV was discontinued without any complications by MARGO. Patient was given discharge summary/instructions, follow-ups, prescriptions and educational materials. Patient did not have any further questions or concerns. Patient was given discharge instructions in her primary language. Patient was taken down to the main entrance via wheelchair with all personal belongings accompanied by MARGO Gibson, where her friend was waiting for her to take her home.
[2019-07-01 19:10] LABS: ANA INTERP Negative (.)
== END 2019-07-01 17:45 | disposition home or self-care (01) | DRG 872 ==
LOC: ER 09:25 → ED HOLD 14:00 → 5 SOUTH 20:10
PROVIDERS: ADMIT Internal Medicine; ATTEND Internal Medicine
DX: A41.9 Sepsis, unspecified organism (principal); J98.11 Atelectasis; N10 Acute pyelonephritis; E87.6 Hypokalemia; G43.909 Migraine, unspecified, not intractable, without status migrainosus; R65.20 Severe sepsis without septic shock; J20.9 Acute bronchitis, unspecified; E66.3 Overweight; Z68.26 Body mass index [BMI] 26.0-26.9, adult; Z79.899 Other long term (current) drug therapy; Z83.3 Family history of diabetes mellitus
CPT/HCPCS: 36415; 71275; 74177; 76770; 80048; 80053; 81001; 81025; 83605; 83690; 83735; 84145; 85007; 85025; 85379; 86038; 87040; 87086; 87801; 93975; 94640; 94760; 96361; 96365; 96367; J0744; J1650; J1885; J2270; J2405; J2543; J3475; J7030; J7620; Q9967; 99285-25; G0378

== ENCOUNTER 2020-01-21 15:07 | Emergency (ER) | payer BC ==
[~2020-01-21] VITALS: Ht 162.6 cm; Wt 77.0 kg
[~2020-01-21 15:07] MED LIST: ALBU2.5V8 INH; BENZ100C PO; LEVO500T59 PO; SUMA25TA3 PO
[2020-01-21 15:43] VITALS: BP 116/81
--- NOTE | 2020-01-21 16:17 | RAD ---
Single view chest dated 01/21/2020. Comparison made to 06/30/2019. CLINICAL INDICATION: Shortness of breath. FINDINGS: Single upright portable exam performed. Heart and mediastinal contours are stable. Mildly prominent perihilar linear markings are similar to prior study. No consolidation or pleural effusion. No pneumothorax. IMPRESSION: No acute radiographic abnormality. Stable findings compared to 06/30/2019 Electronically signed by: Michael Rob MD (01/21/2020 4:14 PM) [id number]
--- NOTE | 2020-01-21 17:29 | PHYS DOC ---
Past Medical History Past Medical History: Arthritis, Migraines, UTI Additional Past Medical Histor: POSSIBLE LUPUS (DANILO LARKIN APRN) Past Surgical History: Cholecystectomy (DANILO LARKIN APRN) Smoking Status: Never Smoker Alcohol Use: Rarely Drug Use: None (DANILO LARKIN APRN) Adult General Chief Complaint Chief Complaint: SHORTNESS OF BREATH HPI HPI Patient is a 49 year old female with no significant medical history who presents to the ED today requesting coronary testing. She reports yesterday she was seen by the PCP and was diagnosed with UTI. She states she is currently on antibiotics. She states she has been watching TV and has noticed increased in cases of concepcion. She is concerned she could have coronavirus and would like to be tested. Patient denies any travel outside [facility], denies any exposure to anyone with coronavirus. Denies cough, denies fever. Receiving Specialist line was used for Bengali (DANILO LARKIN APRN) Review of Systems Review of Systems Constitutional: Denies fever or chills [] Eyes: Denies change in visual acuity, redness, or eye pain [] HENT: Denies nasal congestion or sore throat [] Respiratory: Reports shortness of breath and would like to be tested for coronavirus denies coughing. Cardiovascular: No additional information not addressed in HPI [] GI: Denies abdominal pain, nausea, vomiting, bloody stools or diarrhea [] : Denies dysuria or hematuria [] Musculoskeletal: Denies back pain or joint pain [] Integument: Denies rash or skin lesions [] Neurologic: Denies headache, focal weakness or sensory changes [] All other systems were reviewed and found to be within normal limits, except as documented in this note. (DANILO LARKIN APRN) Allergies Allergies Allergies Coded Allergies Type Severity Reaction Last Updated Verified No Known Drug Allergies 06/27/19 No (GOLLAPALLI,LANCE E DO) Physical Exam Physical Exam Constitutional: Well developed, well nourished, no acute distress, non-toxic appearance. [] HENT: Normocephalic, atraumatic, bilateral external ears normal, oropharynx moist, no oral exudates, nose normal. [] Eyes: PERRLA, EOMI, conjunctiva normal, no discharge. [] Neck: Normal range of motion, no tenderness, supple, no stridor. [] Cardiovascular:Heart rate regular rhythm, no murmur [] Lungs & Thorax: Bilateral breath sounds clear to auscultation [] Abdomen: Bowel sounds normal, soft, no tenderness, no masses, no pulsatile ma sses. [] Skin: Warm, dry, no erythema, no rash. [] Back: No tenderness, no CVA tenderness. [] Extremities: No tenderness, no cyanosis, no clubbing, ROM intact, no edema. [] Neurologic: Alert and oriented X 3, normal motor function, normal sensory function, no focal deficits noted. [] Psychologic: Affect normal, judgement normal, mood normal. [] (DANILO LARKIN APRN) Current Patient Data Vital Signs Vital Signs Date Time Temp Pulse Resp B/P (MAP) Pulse Ox O2 Delivery O2 Flow Rate FiO2 01/21/20 15:43 98.8 111 18 116/81 (93) 98 Room Air 98.8 (GOLLAPALLI,LANCE E DO) EKG EKG [] (DANILO LARKIN APRN) Radiology/Procedures Radiology/Procedures []PROCEDURE: CHEST AP ONLY Single view chest dated 01/21/2020. Comparison made to 06/30/2019. CLINICAL INDICATION: Shortness of breath. FINDINGS: Single upright portable exam performed. Heart and mediastinal contours are stable. Mildly prominent perihilar linear markings are similar to prior study. No consolidation or pleural effusion. No pneumothorax. IMPRESSION: No acute radiographic abnormality. Stable findings compared to 06/30/2019 Electronically signed by: Michael Rob MD (01/21/2020 4:14 PM) [id number] DICTATED and SIGNED BY: MICHAEL ROB MD DATE: 01/21/20 1614 (DANILO LARKIN APRN) Course & Med Decision Making Course & Med Decision Making Pertinent Labs and Imaging studies reviewed. (See chart for details) This is a 49-year-old female patient presenting to the ED today appearing anxious stating she would like to be tested for coronavirus because she has seen increased cases. She has no risk factors to directly warrant the test. She states she has had shortness of breath since this morning. She was seen by her PCP yesterday and was diagnosed with a UTI. She is on antibiotics. Chest x-ray was done which was negative. Patient felt better after the x-ray stating she feels comfortable to go back home. Her oxygen saturations were 98% on room air. She was discharged to home. She has no risk factors for PE. (DANILO LARKIN APRN) Dragon Disclaimer Dragon Disclaimer This electronic medical record was generated, in whole or in part, using a voice recognition dictation system. (DANILO LARKIN APRN) Attending Signature I have participated in the care of this patient and I have reviewed and agree with all pertinent clinical information above including history, exam, and dayana mmendations. (LANCE SALINAS DO) Departure Departure Impression: Primary Impression: Shortness of breath Disposition: HOME, SELF-CARE Condition: STABLE Referrals: NO PCP (PCP) follow up next week Patient Instructions: Shortness of Breath, [id number] Additional Instructions: You were evaluated in the emergency room for shortness of breath. Please follow-up with your doctor in 1 week if symptoms continue. Please come back to the ED at any point symptoms worsen. DANILO LARKIN APRN Jan 21, 2020 17:29 LANCE SALINAS DO Jan 22, 2020 10:41
== END 2020-01-21 17:41 | disposition home or self-care (01) ==
LOC: ER 15:07
DX: R06.02 Shortness of breath (principal); M19.90 Unspecified osteoarthritis, unspecified site; G43.909 Migraine, unspecified, not intractable, without status migrainosus; Z90.49 Acquired absence of other specified parts of digestive tract
CPT/HCPCS: 71045; 99283

== ENCOUNTER 2021-07-13 13:17 | Emergency (ER) | payer BC ==
[~2021-07-13] VITALS: Ht 157.5 cm; Wt 77.9 kg
[2021-07-13] MEDS: IOHEXOL 300 MG/ML 100ML VIAL. IV ONE (14:15)
[2021-07-13] MEDS ORDERED: CONTRAST GIVEN. MC PRN (14:15)
[2021-07-13 15:02] LABS: BASO # 0.1 x10^3/uL (0.0-0.2); BASO % 1 % (0-3); EOS # 0.2 x10^3/uL (0.0-0.7); EOS % 2 % (0-3); HEMATOCRIT 38.3 % (36.0-47.0); HEMOGLOBIN 12.9 g/dL (12.0-15.5); LYMPH # 1.8 x10^3/uL (1.0-4.8); LYMPH % 20 % (24-48); MEAN CORPUSCULAR HEMOGLOBIN 28 pg (25-35); MEAN CORPUSCULAR HGB CONC 34 g/dL (31-37); MEAN CORPUSCULAR VOLUME 81 fL (79-100); MONO # 0.6 x10^3/uL (0.0-1.1); MONO % 6 % (0-9); NEUT # 6.4 x10^3/uL (1.8-7.7); NEUT % 71 % (31-73); PLATELET COUNT 323 x10^3/uL (140-400); RED BLOOD COUNT 4.71 x10^6/uL (3.50-5.40); RED CELL DISTRIBUTION WIDTH 14.4 % (11.5-14.5)
--- NOTE | 2021-07-13 15:03 | RAD ---
Exam Date: 07/13/2021 2:02 PM XR CHEST 1V Indication: Reason: R SHOULDER/THORACIC PAIN / Spl. Instructions: / History: . Comparison: January 21, 2020 FINDINGS/ IMPRESSION: Lung volumes are low. Mild bibasilar subsegmental atelectasis is noted. The cardiac silhouette and pulmonary vasculature are within normal limits. There is no focal consolidation, pleural effusion or pneumothorax. Electronically signed by: Amadeo Bustamante MD (07/13/2021 3:00 PM) [id number]
[2021-07-13 15:16] LABS: BILIRUBIN,URINE NEGATIVE (NEG); CLARITY,URINE CLEAR; COLOR,URINE YELLOW; NITRITE,URINE NEGATIVE (NEG); PH,URINE 7.5 (<5.0-8.0); PROTEIN,URINE NEGATIVE (NEG-TRACE); UROBILINOGEN,URINE 0.2 mg/dL (0.2 mg/dL)
--- NOTE | 2021-07-13 15:17 | PHYS DOC ---
Past Medical History Past Medical History: Arthritis, Migraines, UTI Additional Past Medical Histor: POSSIBLE LUPUS Past Surgical History: Cholecystectomy, Other Additional Past Surgical Histo: right shoulder Smoking Status: Never Smoker Alcohol Use: None Drug Use: None General Adult EDM: Chief Complaint: SHOUDLER HPI: HPI: Patient is a 51 year old female who presents with right-sided flank pain. She thinks it has been going on for a month. Associated with dysuria. Pain radiates to the right shoulder. Has been taking Excedrin for pain, which has not been helping. She states that she got an ultrasound through her primary ([facility]) which she thinks may be showed a lipoma or possibly lymphoma on her kidney. She thinks a UA done there showed blood in her urine. Review of Systems: Review of Systems: Constitutional: Denies fever or chills. [] Eyes: Denies change in visual acuity. [] HENT: Denies nasal congestion or sore throat. [] Respiratory: Denies cough or shortness of breath. [] Cardiovascular: Denies chest pain or edema. [] GI: Denies abdominal pain, nausea, vomiting, bloody stools or diarrhea. [] : Reports dysuria and hematuria reports right-sided flank pain. [] Musculoskeletal: Reports radiation to right shoulder and back. [] Integument: Denies rash. [] Neurologic: Denies headache, focal weakness or sensory changes. [] Endocrine: Denies polyuria or polydipsia. [] Lymphatic: Denies swollen glands. [] Psychiatric: Denies depression or anxiety. [] Heart Score: C/O Chest Pain: No Risk Factors: Risk Factors: DM, Current or recent (<one month) smoker, HTN, HLP, family history of CAD, obesity. Risk Scores: Score 0 - 3: 2.5% MACE over next 6 weeks - Discharge Home Score 4 - 6: 20.3% MACE over next 6 weeks - Admit for Clinical Observation Score 7 - 10: 72.7% MACE over next 6 weeks - Early Invasive Strategies Current Medications: Current Medications Medications (Trade) Dose Ordered Sig/Matt Start Time Stop Time Status Last Admin Dose Admin Info (CONTRAST GIVEN -- Rx MONITORING) 1 each PRN DAILY PRN 07/13/21 14:15 07/15/21 14:14 Iohexol (Omnipaque 300 Mg/ml) 75 ml 1X ONCE 07/13/21 14:15 07/13/21 14:16 DC Allergies: Allergies: Allergies Coded Allergies Type Severity Reaction Last Updated Verified No Known Drug Allergies 07/13/21 No Physical Exam: PE: Constitutional: Appears uncomfortable. [] HENT: Normocephalic, atraumatic, bilateral external ears normal, oropharynx moist, no oral exudates, nose normal. [] Eyes: PERRLA, EOMI, conjunctiva normal, no discharge. [] Neck: Normal range of motion, no tenderness, supple, no stridor. [] Cardiovascular:Heart rate regular rhythm, no murmur. When she sat up her heart rate went to 130 on telemetry. [] Lungs & Thorax: Bilateral breath sounds clear to auscultation [] Abdomen: Right upper quadrant and epigastric tenderness to palpation. [] Skin: Warm, dry, no erythema, no rash. [] Back: No tenderness, no CVA tenderness. [] Extremities: Normal range of motion of the right shoulder. No tenderness, no cyanosis, no clubbing, ROM intact, no edema. [] Neurologic: Alert and oriented X 3, normal motor function, normal sensory function, no focal deficits noted. [] Psychologic: Affect normal, judgement normal, mood normal. [] Current Patient Data: Labs: Laboratory Tests Test 07/13/21 14:50 White Blood Count 9.0 x10^3/uL (4.0-11.0) Red Blood Count 4.71 x10^6/uL (3.50-5.40) Hemoglobin 12.9 g/dL (12.0-15.5) Hematocrit 38.3 % (36.0-47.0) Mean Corpuscular Volume 81 fL (79-100) Mean Corpuscular Hemoglobin 28 pg (25-35) Mean Corpuscular Hemoglobin Concent 34 g/dL (31-37) Red Cell Distribution Width 14.4 % (11.5-14.5) Platelet Count 323 x10^3/uL (140-400) Neutrophils (%) (Auto) 71 % (31-73) Lymphocytes (%) (Auto) 20 % (24-48) L Monocytes (%) (Auto) 6 % (0-9) Eosinophils (%) (Auto) 2 % (0-3) Basophils (%) (Auto) 1 % (0-3) Neutrophils # (Auto) 6.4 x10^3/uL (1.8-7.7) Lymphocytes # (Auto) 1.8 x10^3/uL (1.0-4.8) Monocytes # (Auto) 0.6 x10^3/uL (0.0-1.1) Eosinophils # (Auto) 0.2 x10^3/uL (0.0-0.7) Basophils # (Auto) 0.1 x10^3/uL (0.0-0.2) Laboratory Tests 07/13/21 14:50 Vital Signs: Vital Signs Date Time Temp Pulse Resp B/P (MAP) Pulse Ox O2 Delivery O2 Flow Rate FiO2 07/13/21 13:53 99.1 107 20 140/84 (102) 98 Room Air 99.1 EKG: EKG: [] Sinus rhythm. Rate 82. Normal intervals. Normal axis. No acute ischemic changes. Radiology/Procedures: Radiology/Procedures: [facility] [address] [place] [address] IMAGING REPORT Signed PATIENT: SOLITARIO HANSENACCOUNT: [id number] : 1970 LOCATION: ER AGE: 51 SEX: F EXAM STATUS: REG ER ORD. PHYSICIAN: ANAI SILVA MD REASON: RUQ PAIN, RADIATES TO SHOULDER PROCEDURE: CT ABD PELV W/ IV CONTRST ONLY CT STUDY OF THE ABDOMEN AND PELVIS WITH CONTRAST Clinical indications: Right upper quadrant abdominal pain which radiates to shoulder. TECHNIQUE: After IV infusion of 75 cc Omnipaque 300, helical CT scanning of the abdomen and pelvis was performed. GI contrast was not administered. This may decrease the sensitivity to detect GI tract pathology. PQRS COMPLIANCE STATEMENT One or more of the following individualized dose reduction techniques were uti lized for this study: 1. Automated exposure control 2. Adjustment of the mA and/or kV according to patient size 3. Use of iterative reconstruction technique COMPARISON: June 27, 2019. FINDINGS: The liver and spleen and pancreas are normal. Gallbladder is surgically absent. No extra hepatic biliary ductal dilatation is seen. No adrenal mass is evident. No hydronephrosis or hydroureter or urinary tract stone is evident. Both kidneys are normal. Urinary bladder wall is smooth. No uterine mass is seen. No dominant ovarian cyst or mass is apparent. The terminal ileum is unremarkable. A 4 mm appendicolith is seen within the proximal aspect of the appendix near the base of the cecum. Otherwise, the appendix is normal. No obstructive bowel pattern is seen. No mesenteric edema or free fluid or free air is seen. No lung base consolidation is seen. Tiny right middle lobe lung nodule seen which is stable consistent with a benign finding. No lytic process is seen. IMPRESSION: No acute abnormality. Small 4 mm appendicolith. Otherwise the appendix is normal. Electronically signed by: Love Spaulding MD (07/13/2021 4:10 PM) [id number] DICTATED and SIGNED BY: LOVE SPAULDING MD DATE: 07/13/21 [id number] [] Impression: [facility] [address] [place], [place] [id number] IMAGING REPORT Signed PATIENT: SOLITARIO HANSENACCOUNT: [id number] : 1970 LOCATION: ER AGE: 51 SEX: F EXAM STATUS: REG ER ORD. PHYSICIAN: ANAI SILVA MD REASON: R SHOULDER/THORACIC PAIN PROCEDURE: CHEST AP ONLY Exam Date: 07/13/2021 2:02 PM XR CHEST 1V Indication: Reason: R SHOULDER/THORACIC PAIN / Spl. Instructions: / History: . Comparison: January 21, 2020 FINDINGS/ IMPRESSION: Lung volumes are low. Mild bibasilar subsegmental atelectasis is noted. The cardiac silhouette and pulmonary vasculature are within normal limits. There is no focal consolidation, pleural effusion or pneumothorax. Electronically signed by: Kavin Bustamante MD (07/13/2021 3:00 PM) [id number] DICTATED and SIGNED BY: KAVIN BUSTAMANTE MD DATE: 07/13/21 [id number] 0 Course & Med Decision Making: Course & Med Decision Making Pertinent Labs and Imaging studies reviewed. (See chart for details) Patient is 51-year-old Azeri-speaking female who presents with 1 month of right-sided upper abdominal and flank pain radiating to her right shoulder. Reportedly had hematuria on outpatient work-up. She believes that she either had a lipoma or lymphoma on an outpatient ultrasound. On arrival is afebrile, hemodynamically stable. Appears uncomfortable and has right upper quadrant tenderness and epigastric tenderness to palpation. EKG was nonischemic. Given the vagueness of complaint a troponin was sent to exclude cardiac ischemia. We will obtain labs including hepatic panel, lipase, UA, and obtain a CT of the abdomen pelvis for further evaluation. Chest x-ray without acute process 1517 Blood work normal. CMP, lipase, troponin reassuring. UA does show bacteria and red cells. Given dysuria, flank pain will treat for urinary tract infection. No evidence of pyelonephritis/sepsis. CT without acute process. We will give Bactrim for 7 days. I have asked that she follow-up with her PCP to ensure hematuria clears. May need further work-up if it does not. 1621 Raj Disclaimer: Raj Disclaimer: This electronic medical record was generated, in whole or in part, using a voice recognition dictation system. Departure Departure Impression: Primary Impression: Hematuria Disposition: HOME / SELF CARE / HOMELESS Condition: STABLE Referrals: NO PCP (PCP) FOLLOW UP WITH [facility] Additional Instructions: I am concerned that you may have a urinary tract infection. Please take a full course of antibiotics as prescribed. Please follow-up with your team at the [facility]. You did continue to have blood in your urine, this will need to be followed up closely. Scripts Sulfamethoxazole/Trimethoprim (BACTRIM DS TABLET) 1 Each Tablet 1 TAB PO BID for infection for 7 Days, #14 TAB Prov: ANAI SILVA MD 07/13/21 ANAI SILVA MD Jul 13, 2021 15:17
[2021-07-13 15:25] LABS: CALCIUM 9.2 mg/dL (8.5-10.1); CREATININE 0.7 mg/dL (0.6-1.0); GFR 87.5; POTASSIUM 3.7 mmol/L (3.5-5.1)
[2021-07-13 15:26] LABS: BACTERIA,URINE FEW /HPF (0-FEW)
[2021-07-13 15:27] LABS: WBC,URINE 0 /HPF (0-4)
[2021-07-13 15:31] LABS: ALBUMIN/GLOBULIN RATIO 1.3 (1.0-1.7); TOTAL BILIRUBIN 0.3 mg/dL (0.2-1.0); TOTAL PROTEIN 7.1 g/dL (6.4-8.2)
--- NOTE | 2021-07-13 15:46 | EKG ---
[facility] [address] [place] [address] Test Date: 2021-07-13 Test Time: 14:57:07 Pat Name: SOLITARIO HANSEN Department: Room: Gender: F [employer]: : 1970 Requested By: ANAI SILVA Order Number: [id number] Reading MD: Measurements Intervals [place] Rate: 82 P: 42 OR: 186 QRS: 57 QRSD: 80 T: 15 QT: 376 QTc: 442 Interpretive Statements SINUS RHYTHM NORMAL ECG RI6.02 No previous ECG available for comparison
--- NOTE | 2021-07-13 16:12 | RAD ---
CT STUDY OF THE ABDOMEN AND PELVIS WITH CONTRAST Clinical indications: Right upper quadrant abdominal pain which radiates to shoulder. TECHNIQUE: After IV infusion of 75 cc Omnipaque 300, helical CT scanning of the abdomen and pelvis wa s performed. GI contrast was not administered. This may decrease the sensitivity to detect GI tract p athology. PQRS COMPLIANCE STATEMENT One or more of the following individualized dose reduction techniques were utilized for this study: 1. Automated exposure control 2. Adjustment of the mA and/or kV according to patient size 3. Use of iterative reconstruction technique COMPARISON: June 27, 2019. FINDINGS: The liver and spleen and pancreas are normal. Gallbladder is surgically absent. No extra he patic biliary ductal dilatation is seen. No adrenal mass is evident. No hydronephrosis or hydroureter or urinary tract stone is evident. Both kidneys are normal. Urinary bladder wall is smooth. No uteri ne mass is seen. No dominant ovarian cyst or mass is apparent. The terminal ileum is unremarkable. A 4 mm appendicolith is seen within the proximal aspect of the appendix near the base of the cecum. Oth erwise, the appendix is normal. No obstructive bowel pattern is seen. No mesenteric edema or free flu id or free air is seen. No lung base consolidation is seen. Tiny right middle lobe lung nodule seen w hich is stable consistent with a benign finding. No lytic process is seen. IMPRESSION: No acute abnormality. Small 4 mm appendicolith. Otherwise the appendix is normal. Electronically signed by: Jovanny Spaulding MD (07/13/2021 4:10 PM) [id number]
[2021-07-13] MEDS ORDERED: SULF1TAB24 PO (16:19)
[2021-07-13 16:23] VITALS: BP 108/65
== END 2021-07-13 16:52 | disposition home or self-care (01) ==
LOC: ER 13:17
DX: R31.9 Hematuria, unspecified (principal); M25.511 Pain in right shoulder; R30.0 Dysuria; R07.89 Other chest pain; R10.11 Right upper quadrant pain
CPT/HCPCS: 36415; 71045; 74177; 80053; 81001; 83690; 84484; 85025; 87086; 93005; 99285; Q9967